=== PATIENT | female | born 1985 | race Caucasian/White ===

== ENCOUNTER 2020-02-17 11:41 | Outpatient (REF) | payer OTHER, SELFPAY ==
[2020-02-17 14:35] LABS: Free T4 (Free Thyroxine) 0.93 ng/dL (0.71-1.85)
== END 2020-02-17 11:42 | disposition home or self-care (01) ==
LOC: HO.10HDL 11:41
PROVIDERS: Visit Provider Advanced Practice Midwife
DX: R53.83 Other fatigue (principal)
CPT/HCPCS: 84439; 84443

== ENCOUNTER 2020-05-12 18:16 | Emergency (ER) | payer OTHER, SELFPAY ==
[2020-05-12 18:33] VITALS: BP 157/91; PULSE 119; RESP 18; TEMP 36.3; O2SAT 99; BMI 26.5
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
[2020-05-12] MEDS: Butalb/Acetamin/Caff 50/325/40 TABLET 2 TAB PO (19:51)
[2020-05-12 19:57] VITALS: BP 138/92; PULSE 80; RESP 18; O2SAT 100
== END 2020-05-12 20:43 | disposition home or self-care (01) ==
PROVIDERS: Emergency Provider Emergency Medicine Emergency Medical Services
DX: G43.901 Migraine, unspecified, not intractable, with status migrainosus (principal); R29.700 NIHSS score 0; Z79.899 Other long term (current) drug therapy
CPT/HCPCS: 99283; 99284

== ENCOUNTER 2020-08-23 19:48 | Emergency (ER) | payer OTHER, SELFPAY ==
[2020-08-23 19:51] VITALS: BP 147/103; PULSE 100; RESP 20; TEMP 36.6; O2SAT 100; BMI 30.4
--- NOTE | 2020-08-23 20:48 | ED.GENADULT ---
HPI - General Adult General Chief complaint: General Medical Stated complaint: High blood pressure Time Seen by Provider: 08/23/20 20:22 Source: patient Mode of arrival: ambulatory Limitations: no limitations History of Present Illness HPI narrative: Patient checked her blood pressure at home was 150/ 90 strong family history of hypertension and family in the ER blood pressure was 147/103 feeling increased anxiety patient does have borderline blood pressure before but never been started on medication patient denies any headache no chest pain or palpitation or shortness of breath no leg swelling Related Data Previous Rx's Medication Instructions Recorded sjlhctywuv-euasyqtrrvinc-yoii 1 cap PO Q8H PRN #20 cap 05/12/20 [Fioricet] amlodipine 2.5 mg PO DAILY #30 tab 08/23/20 lorazepam [Ativan] 0.5 mg PO BEDTIME PRN #20 tab 08/23/20 omeprazole 40 mg PO DAILY #30 cap 08/23/20 ibuprofen 600 mg PO Q6H PRN #20 tab 08/28/20 amlodipine 10 mg PO DAILY #20 tab 09/15/20 Allergies Allergy/AdvReac Type Severity Reaction Status Date / Time Penicillins [PENICILLINS] Allergy Mild HIVES Verified 09/14/20 22:23 diphenhydramine Allergy Unknown TACHYCARDIA Verified 09/14/20 22:23 [From BENADRYL] influenza virus vaccine, Allergy Unknown HIVES Verified 09/14/20 22:23 specific [FLU VACCINE] Review of Systems Review of Systems: Yes all other systems are reviewed and are negative PMFSH Past Medical History Medical History Anxiety Panic attack hypertension Preeclampsia Surgical History History of cholecystectomy Social History Social History Alcohol intake: former Substance Use Type: Marijuana Advance Directives: No Advance Directives Information Provided: No Patient : No Physical Exam Vital Signs: Vital Signs: Last Vital Signs Temp 98 F 08/23/20 19:51 Pulse 92 08/23/20 21:19 Resp 18 08/23/20 20:49 BP 137/104 H 08/23/20 21:19 Pulse Ox 100 08/23/20 20:49 Body Mass Index 30.4 Appearance: Alert. Oriented X3. No acute distress. Eyes: PERRLA, No Nystagmus ENT: Pharynx normal. Oral Mucosa moist Neck: Normal inspection. Neck supple. CVS: Normal heart rate and rhythm. Pulses normal. Respiratory: No respiratory distress. Equal air entry bilateral, no wheezing/rales/rhonchi Abdomen: Soft and nontender. Bowel sounds are present, no mass palpable, no CVA tenderness Skin: Skin warm and dry. Normal skin color. Normal skin turgor. Extremities: No lower extremity edema. No calf tenderness Neuro: Oriented X 3. No motor deficit. No sensory deficit. Medical Decision Making MDM Narrative Medical decision making narrative: Patient with persistent high blood pressure in the past and still will start her on amlodipine 2.5 mg daily Discharge Plan Discharge Clinical Impression: Hypertension Patient Disposition: Home, Self-Care Instructions: Hypertension (ED), Anxiety (ED) Additional Instructions: Take medication as advised for high blood pressure. Check blood pressure daily should be less than 130/80. Follow up with PCP if not better Prescriptions: New amlodipine 2.5 mg tablet 2.5 mg PO DAILY Qty: 30 RF: 0 omeprazole 40 mg capsule,delayed release(DR/EC) 40 mg PO DAILY Qty: 30 RF: 0 lorazepam [Ativan] 0.5 mg tablet 0.5 mg PO BEDTIME PRN (Reason: anxiety) Qty: 20 RF: 0 No Action ibuprofen 600 mg tablet 600 mg PO Q6H PRN (Reason: pain) Qty: 20 RF: 0 amlodipine 10 mg tablet 10 mg PO DAILY Qty: 20 RF: 0 yjjnbojeaz-twbmcnyhvtxvk-intw [Fioricet] 50-300-40 mg capsule 1 cap PO Q8H PRN (Reason: pain) Qty: 20 RF: 0 Interventions: ED Discharge Assessment Last Done: 08/23/20 22:01 Discharge Date/Time: 08/23/20 22:02
[2020-08-23 20:49] VITALS: BP 150/100; PULSE 103; RESP 18; O2SAT 100
--- NOTE | 2020-08-23 20:58 | PC.NURSE ---
appears well. states she feels anxious, had preeclampsia in 2 pregnancies. no neuro deficits. no headache.
[2020-08-23 21:19] VITALS: BP 137/104; PULSE 92
[2020-08-23] MEDS: amLODIPine Besylate 2.5 MG TABLET PO (21:19)
== END 2020-08-23 22:02 | disposition home or self-care (01) ==
PROVIDERS: Emergency Provider Internal Medicine; PCP Internal Medicine
DX: I10 Essential (primary) hypertension (principal); F41.9 Anxiety disorder, unspecified; F12.90 Cannabis use, unspecified, uncomplicated; Z79.899 Other long term (current) drug therapy
CPT/HCPCS: 99283; 99284

== ENCOUNTER 2020-08-28 15:05 | Emergency (ER) | payer OTHER, SELFPAY ==
--- NOTE | ~2020-08-28 | US_ITS ---
EXAMINATION: PELVIC ULTRASOUND CLINICAL INFORMATION: Left lower quadrant pain COMPARISON: Pelvic ultrasound 11/16/2019 TECHNIQUE: Both transabdominal and endovaginal scanning was performed. FINDINGS: The anteverted uterus present measuring 10.4 x 4.9 x 6.6 cm. The endometrium appears normal at 1.1 cm. The right ovary was not seen. This was also not seen at the time of the prior study. Left ovary measures 4.6 x 3.7 x 3.3 cm for a volume of 29 mL and contains multiple cysts the largest measuring 2.4 x 1.6 x 2.5 cm. No free fluid is present in the cul-de-sac US/US transvaginal IMPRESSION: 1. Benign-appearing cyst left ovary. No imaging follow-up is needed. 2. Normal-appearing uterus. 3. Right ovary not visualized
--- NOTE | ~2020-08-28 | US_ITS ---
EXAMINATION: PELVIC ULTRASOUND CLINICAL INFORMATION: Left lower quadrant pain COMPARISON: Pelvic ultrasound 11/16/2019 TECHNIQUE: Both transabdominal and endovaginal scanning was performed. FINDINGS: The anteverted uterus present measuring 10.4 x 4.9 x 6.6 cm. The endometrium appears normal at 1.1 cm. The right ovary was not seen. This was also not seen at the time of the prior study. Left ovary measures 4.6 x 3.7 x 3.3 cm for a volume of 29 mL and contains multiple cysts the largest measuring 2.4 x 1.6 x 2.5 cm. No free fluid is present in the cul-de-sac US/US pelvic complete IMPRESSION: 1. Benign-appearing cyst left ovary. No imaging follow-up is needed. 2. Normal-appearing uterus. 3. Right ovary not visualized
[2020-08-28 15:39] VITALS: BP 144/86; PULSE 90; RESP 16; TEMP 36.6; O2SAT 98; BMI 29.7
[2020-08-28 16:01] LABS: MANUAL DIFF FLAG NO
[2020-08-28 16:02] LABS: Basophils Absolute Auto 0.1 X10*3/uL (0.0-0.2); Basophils Percent Auto 0.6 % (0-2); Eosinophils Absolute Auto 0.3 X10*3/uL (0.0-0.4); Eosinophils Percent Auto 3.4 % (0-4); Hematocrit 38.5 % (37-47); Hemoglobin 12.4 g/dl (12.0-16.0); Imm Gran Abs Auto 0.02 X10*3/uL (0.00-0.03); Imm Gran Pct Auto 0.2 % (0.0-0.4); Lymphocytes Absolute Auto 1.7 X10*3/uL (1.2-4.9); Lymphocytes Percent Auto 18.9 % (20-40); Mean Corpuscular HGB Conc 32.2 g/dl (31.0-35.0); Mean Corpuscular Hemoglobin 25.1 pg (27.0-33.0); Mean Corpuscular Volume 77.8 fL (80-98); Mean Platelet Volume 11.8 fL (9.4-12.3); Monocytes Absolute Auto 0.5 X10*3/uL (0.1-1.2); Monocytes Percent Auto 5.4 % (2-11); Neutrophils Absolute Auto 6.4 X10*3/uL (2.0-8.3); Neutrophils Percent Auto 71.5 % (45-73); Platelet Count 290 X10*3/uL (160-400); Red Blood Count 4.95 X10*6/uL (4.20-5.50); White Blood Count 8.9 X10*3/uL (4.8-10.8)
[2020-08-28 16:22] LABS: Anion Gap 10 (12-20); Blood Urea Nitrogen 10 mg/dL (9-16); Calcium 9.3 mg/dL (8.4-10.2); Carbon Dioxide 27 mmol/L (22-29); Chloride 105 mmol/L (96-108); Creatinine Clr Calc Pharmacy 105.7; Estimated Glomerular Filt Rate > 60; Glucose Random 109 mg/dL (60-115); Sodium 138 mmol/L (135-145)
--- NOTE | 2020-08-28 18:03 | ED.ABDPAIN ---
HPI - Abdominal Pain General Chief Complaint: Abdominal Pain Stated Complaint: pelvic pain Time Seen by Provider: 08/28/20 18:03 Source: patient Mode of arrival: ambulatory Limitations: no limitations History of Present Illness HPI narrative: Patient's history of remote ovarian cyst comes here for 3 days of loaf left lower quadrant abdominal pain no nausea no vomiting no fever no chills no diarrhea no increase in pain while ambulating. Patient denies any urinary complaints no vaginal discharge MD elicited complaint: abdominal pain Related Data Previous Rx's Medication Instructions Recorded zjtfdnnkoi-ewuhhirjcgkkq-qkqq 1 cap PO Q8H PRN #20 cap 05/12/20 [Fioricet] amlodipine 2.5 mg PO DAILY #30 tab 08/23/20 lorazepam [Ativan] 0.5 mg PO BEDTIME PRN #20 tab 08/23/20 omeprazole 40 mg PO DAILY #30 cap 08/23/20 ibuprofen 600 mg PO Q6H PRN #20 tab 08/28/20 Allergies Allergy/AdvReac Type Severity Reaction Status Date / Time Penicillins [PENICILLINS] Allergy Mild HIVES Verified 08/23/20 19:56 diphenhydramine Allergy Unknown TACHYCARDIA Verified 08/23/20 19:56 [From BENADRYL] influenza virus vaccine, Allergy Unknown HIVES Verified 08/23/20 19:56 specific [FLU VACCINE] Review of Systems Review of Systems Constitutional : No Weight loss, No Fever, No Chills ENT/Mouth : No sore throat, No Rhinorrhea Eyes: No Eye Pain, No Swelling Cardiovascular : No Chest Pain, no palpitations Respiratory : No Cough, No Sputum, no shortness of breath Gastrointestinal : no Nausea, No Vomiting, No Diarrhea,+ abdominal Pain, no black stools Genitourinary : No Dysuria, No Urinary Frequency Musculoskeletal : No joint pain, No Myalgias, No Joint Swelling Skin : No Skin Lesions, No rash Neuro : No Weakness, No Numbness, No Dizziness, No Headache Psych : No Anxiety/Panic, No Depression Heme/Lymph: No Bruising, No Lymphadenopathy Endocrine : No Polyuria, No Polydipsia All other systems reviewed and are negative Physical Exam Vital Signs: Vital Signs: Last Vital Signs Temp 99.1 F 08/28/20 20:59 Pulse 102 H 08/28/20 20:59 Resp 19 08/28/20 20:59 BP 155/101 H 08/28/20 20:59 Pulse Ox 99 08/28/20 20:59 Body Mass Index 29.7 Appearance: Alert. Oriented X3. No acute distress. Eyes: PERRLA, No Nystagmus ENT: Pharynx normal. Oral Mucosa moist Neck: Normal inspection. Neck supple. CVS: Normal heart rate and rhythm. Pulses normal. Respiratory: No respiratory distress. Equal air entry bilateral, no wheezing/rales/rhonchi Abdomen: Soft , deep tenderness left lower quadrant. Bowel sounds are present, no mass palpable, no CVA tenderness Skin: Skin warm and dry. Normal skin color. Normal skin turgor. Extremities: No lower extremity edema. No calf tenderness Neuro: Oriented X 3. No motor deficit. No sensory deficit.No cerebellar signs , cranial nerves II-XII intact MDM - Abdominal Pain MDM Narrative Medical decision making narrative: Patient with small left ovarian cyst causing the pain will discharge her home on ibuprofen. Patient's blood pressure on the borderline on amlodipine 5 mg daily will take her medicine tonight Lab Data Attestation: I reviewed the patient's lab results. Result diagrams: 08/28/20 15:54 08/28/20 15:54 Labs: Lab Results 08/28/20 08/28/20 08/28/20 Range/Units 15:54 15:54 18:52 WBC 8.9 (4.8-10.8) X10*3/uL RBC 4.95 (4.20-5.50) X10*6/uL Hgb 12.4 (12.0-16.0) g/dl Hct 38.5 (37-47) % MCV 77.8 L (80-98) fL MCH 25.1 L (27.0-33.0) pg MCHC 32.2 (31.0-35.0) g/dl RDW 15.0 (11.0-16.0) % Plt Count 290 (160-400) X10*3/uL MPV 11.8 (9.4-12.3) fL Immature Gran % (Auto) 0.2 (0.0-0.4) % Neut % (Auto) 71.5 (45-73) % Lymph % (Auto) 18.9 L (20-40) % Calloway % (Auto) 5.4 (2-11) % Eos % (Auto) 3.4 (0-4) % Baso % (Auto) 0.6 (0-2) % Lymph # (Auto) 1.7 (1.2-4.9) X10*3/uL C[place]ay # (Auto) 0.5 (0.1-1.2) X10*3/uL Eos # (Auto) 0.3 (0.0-0.4) X10*3/uL Baso # (Auto) 0.1 (0.0-0.2) X10*3/uL Abs Immat Gran (auto) 0.02 (0.00-0.03) X10*3/uL Absolute Neuts (auto) 6.4 (2.0-8.3) X10*3/uL Absolute Nucleated RBC 0.000 (0.0-0.012) X10*3/uL Nucleated RBC % (auto) 0.0 (0.0-0.2) /100WBC Sodium 138 (135-145) mmol/L Potassium 4.0 (3.3-5.1) mmol/L Chloride 105 (96-108) mmol/L Carbon Dioxide 27 (22-29) mmol/L Anion Gap 10 L (12-20) BUN 10 (9-16) mg/dL Creatinine 0.74 (0.5-1.4) mg/dL Estim Creat Clear Calc 105.7 Estimated GFR > 60 Random Glucose 109 (60-115) mg/dL Calcium 9.3 (8.4-10.2) mg/dL Urine Color YELLOW Urine Appearance CLEAR Urine pH 7.0 (5.0-8.0) Ur Specific [place] 1.015 (1.005-1.025) Urine Protein NEG (NEG-TRACE) MG/DL Urine Glucose (UA) NEG (NEG) MG/DL Urine Ketones 15 (NEG) MG/DL Urine Blood NEG (NEG) Urine Nitrite NEG (NEG) Ur Leukocyte Esterase NEG (NEG) Discharge Plan Discharge Clinical Impression: Ovarian cyst Qualifiers: Laterality: left Qualified Code(s): N83.202 - Unspecified ovarian cyst, left side Patient Disposition: Home, Self-Care Instructions: Ovarian Cyst (ED) Additional Instructions: Ibuprofen for pain Follow-up with critical care registered nurse in 2 months Continue your blood pressure medication daily Prescriptions: New ibuprofen 600 mg tablet 600 mg PO Q6H PRN (Reason: pain) Qty: 20 RF: 0 No Action amlodipine 2.5 mg tablet 2.5 mg PO DAILY Qty: 30 RF: 0 omeprazole 40 mg capsule,delayed release(DR/EC) 40 mg PO DAILY Qty: 30 RF: 0 lorazepam [Ativan] 0.5 mg tablet 0.5 mg PO BEDTIME PRN (Reason: anxiety) Qty: 20 RF: 0 yjssapgvwl-rjtuxcsadvaez-pofm [Fioricet] 50-300-40 mg capsule 1 cap PO Q8H PRN (Reason: pain) Qty: 20 RF: 0 Discharge Date/Time: 08/28/20 21:11 [facility] Past Medical History Medical History Anxiety Panic attack hypertension Preeclampsia Surgical History History of cholecystectomy Social History Social History Alcohol intake: former Smoking Status: Never smoker Substance Use Type: Marijuana Advance Directives: No Advance Directives Information Provided: No Patient : No
[2020-08-28 18:05] VITALS: BP 165/106
[2020-08-28 18:43] VITALS: BP 147/102; PULSE 113; RESP 16; O2SAT 100
[2020-08-28 19:04] LABS: Glucose Urine UA NEG (NEG); Leukocyte Esterase Urine NEG (NEG); Nitrite Urine NEG (NEG); Specific Gravity - Urine 1.015 (1.005-1.025); Urine Blood NEG (NEG); Urine Ketones 15 MG/DL (NEG); Urine Protein NEG (NEG-TRACE)
[2020-08-28 19:10] LABS: Appearance Urine CLEAR; Color Urine YELLOW
[2020-08-28] MEDS: Butalb/Acetamin/Caff 50/325/40 TABLET 1 TAB PO (19:12)
--- NOTE | 2020-08-28 19:16 | PC.NURSE ---
Pt aaox4, resting on stretcher in NAD, RR even and unlabored, NSR-ST on cardiac rehabilitation program director. Pt reports feelings of anxiety, frontal SANTOS and LLQ abd pain. Pt aware and agreeable to plan for abd US, pt medicated per MAR with Fioricet. Pt offers no additional concerns/complaints/questions. Pt stretcher in lowest locked position, rail raised, call mart within reach. Pt educated on use of call mart, able to perform return demonstration.
[2020-08-28 20:59] VITALS: BP 155/101; PULSE 102; RESP 19; TEMP 37.3; O2SAT 99
== END 2020-08-28 21:11 | disposition home or self-care (01) ==
PROVIDERS: Emergency Provider Internal Medicine; PCP Internal Medicine
DX: R10.32 Left lower quadrant pain (principal); N83.202 Unspecified ovarian cyst, left side; F41.9 Anxiety disorder, unspecified
CPT/HCPCS: 36415; 76830; 76856; 80048; 81003; 85025; 99284; 99285

== ENCOUNTER 2020-09-14 22:12 | Emergency (ER) | payer OTHER, SELFPAY ==
[2020-09-14 22:19] VITALS: BP 154/104; PULSE 86; RESP 20; TEMP 36.3; O2SAT 98; BMI 29.7
--- NOTE | 2020-09-15 00:06 | ECG_ITS ---
Test Reason : HTM Blood Pressure : / mmHG Vent. Rate : 079 BPM Atrial Rate : 079 BPM P-R Int : 154 ms QRS Dur : 076 ms QT Int : 414 ms P-R-T Axes : 051 008 053 degrees QTc Int : 474 ms Normal sinus rhythm with sinus arrhythmia Normal ECG When compared with ECG of 21-MAY-2019 10:46, No significant change was found Referred By: Martha Romero Electronically Signed By:GABY AVALOS
--- NOTE | 2020-09-15 00:12 | ED_ITS ---
HPI - General Adult General Chief complaint: General Medical Stated complaint: High Blood Pressure Time Seen by Provider: 09/15/20 00:04 Source: patient Mode of arrival: ambulatory Limitations: no limitations History of Present Illness HPI narrative: Patient comes emergency room complaining of high blood pressure. Patient states her blood pressure was 160/102 this evening. Patient states she forgot to take her blood pressure yesterday. Today she took 5 mg as she usually does plus additional 2.5 mg of amlodipine. Patient has been on amlodipine for 1 month. Patient states that she is becoming more anxious about the trip to [place]. At this time, patient denies chest pain, no shortness of breath, no visual changes, states he has a mild headache her worst complaint at this time is the anxiety that she is feeling. Related Data Previous Rx's Medication Instructions Recorded [id number] 1 cap PO Q8H PRN #20 cap 05/12/20 [Fioricet] amlodipine 2.5 mg PO DAILY #30 tab 08/23/20 lorazepam [Ativan] 0.5 mg PO BEDTIME PRN #20 tab 08/23/20 omeprazole 40 mg PO DAILY #30 cap 08/23/20 ibuprofen 600 mg PO Q6H PRN #20 tab 08/28/20 amlodipine 10 mg PO DAILY #20 tab 09/15/20 Allergies Allergy/AdvReac Type Severity Reaction Status Date / Time Penicillins [PENICILLINS] Allergy Mild HIVES Verified 09/14/20 22:23 diphenhydramine Allergy Unknown TACHYCARDIA Verified 09/14/20 22:23 [From BENADRYL] influenza virus vaccine, Allergy Unknown HIVES Verified 09/14/20 22:23 specific [FLU VACCINE] Review of Systems Review of Systems: Constitutional : No Weight loss, No Fever, No Chills, No Night Sweats, No Fatigue, No Malaise ENT/Mouth : No Hearing loss, No Ear Pain, No Nasal Congestion, No Sinus Pain, No Hoarseness, No sore throat, No Rhinorrhea, No Swallowing Difficulty Eyes: No Eye Pain, No Swelling, No Redness, No Foreign Body, No Discharge, No Vision Changes Cardiovascular : No Chest Pain, No SOB, No Dyspnea on Exertion, No Orthopnea, No Edema, No Palpitations Respiratory : No Cough, No Sputum, No Wheezing, No Smoke Exposure, No Dyspnea Gastrointestinal : No Nausea, No Vomiting, No Diarrhea, No Constipation, No abdominal Pain, No Hematochezia, No Melena Genitourinary : no irregular bleeding, No Dysuria, No Urinary Frequency, No Hematuria, No Urinary Incontinence, No Urgency, No Flank Pain, No Urinary Flow Changes, No Hesitancy Musculoskeletal : No joint pain, No Myalgias, No Joint Swelling Skin : No Skin Lesions, No rash Neuro : No Weakness, No Numbness, No Paresthesias, No Loss of Consciousness, No Dizziness, complaining of mild Headache Psych : Complaining of anxiety, No Depression, No SI/HI/AH/VH, No Social Issues, Heme/Lymph: No Bruising, No Bleeding,No Lymphadenopathy Endocrine : No Polyuria, No Polydipsia, No Temperature Intolerance [facility] Past Medical History Medical History Anxiety Panic attack hypertension Preeclampsia Surgical History History of cholecystectomy Social History Social History Alcohol intake: former Substance Use Type: Marijuana Advance Directives: No Advance Directives Information Provided: No Patient : No Physical Exam Vital Signs: Vital Signs: Last Vital Signs Temp 98.0 F 09/15/20 00:24 Pulse 90 09/15/20 01:21 Resp 17 09/15/20 00:24 BP 153/97 H 09/15/20 01:21 Pulse Ox 100 09/15/20 00:24 Body Mass Index 29.7 Appearance: Alert. Oriented X3. No acute distress. Eyes: Pupils equal, round and reactive to light. ENT: Pharynx normal. Neck: Normal inspection. Neck supple. No lymph nodes noted. No crepitus CVS: Normal heart rate and rhythm. Pulses normal. Normal S1 and S2 Respiratory: No respiratory distress. Breath sounds normal. No Wheezing. No rales Abdomen: Soft and nontender. No rigidity. No distention. good BS x4 Skin: Skin warm and dry. Normal skin color. Normal skin turgor. Extremities: No lower extremity edema. No lower extremity edema. No Lacerations. No Rash Neuro: Oriented X 3. No motor deficit. No sensory deficit. Moving all extermities. No slurred speech. Course Course Course Narrative: Patient currently taking amlodipine 5 mg, I discussed with the patient to increase the dose to 10 mg. Patient's blood pressure 154 systolic. Patient will follow-up with her primary care physician. Medical Decision Making ECG Data Attestation: I personally reviewed and interpreted this ECG as follows: (Heart rate 79, sinus rhythm, no ST segment depression or elevation, no T-wave i nversion, QTC 474) Discharge Plan Discharge Clinical Impression: Anxiety Hypertension Qualifiers: Hypertension type: essential hypertension Qualified Code(s): I10 - Essential (primary) hypertension Patient Disposition: Home, Self-Care Instructions: Hypertension (ED) Additional Instructions: Please follow-up with your primary care physician tomorrow. If you have any worsening or new symptoms, please return to the emergency room or call 911 Prescriptions: New amlodipine 10 mg tablet 10 mg PO DAILY Qty: 20 RF: 0 No Action amlodipine 2.5 mg tablet 2.5 mg PO DAILY Qty: 30 RF: 0 omeprazole 40 mg capsule,delayed release(DR/EC) 40 mg PO DAILY Qty: 30 RF: 0 lorazepam [Ativan] 0.5 mg tablet 0.5 mg PO BEDTIME PRN (Reason: anxiety) Qty: 20 RF: 0 ibuprofen 600 mg tablet 600 mg PO Q6H PRN (Reason: pain) Qty: 20 RF: 0 [id number]-cjomsdbmxosla-tjyi [Fioricet] 50-300-40 mg capsule 1 cap PO Q8H PRN (Reason: pain) Qty: 20 RF: 0
[2020-09-15 00:24] VITALS: BP 157/104; PULSE 74; RESP 17; TEMP 36.7; O2SAT 100
[2020-09-15] MEDS: Acetaminophen 325 MG TABLET 650 MG PO (00:34)
[2020-09-15] MEDS: LORazepam 1 MG TABLET PO (00:35)
[2020-09-15 01:21] VITALS: BP 153/97; PULSE 90
[2020-09-15] MEDS: hydrALAZINE HCl 25 MG TABLET PO (01:21)
[2020-09-15 02:00] VITALS: BP 114/78; PULSE 78; RESP 15; O2SAT 98
== END 2020-09-15 03:52 | disposition home or self-care (01) ==
PROVIDERS: Emergency Provider Emergency Medicine; PCP Internal Medicine
DX: F41.9 Anxiety disorder, unspecified (principal); I10 Essential (primary) hypertension; F12.90 Cannabis use, unspecified, uncomplicated
CPT/HCPCS: 93005; 99283; 99284

== ENCOUNTER 2020-12-13 16:23 | Emergency (ER) | payer OTHER, SELFPAY ==
[2020-12-13 16:30] VITALS: BP 135/94; PULSE 96; RESP 16; TEMP 37.1; O2SAT 98; BMI 29.5
[2020-12-13 18:41] LABS: COVID-19 Test Negative (Negative); IDNOW Serial# 9DD0AD1C
--- NOTE | 2020-12-13 18:57 | ED.URI ---
HPI - URI/Sore Throat General Chief Complaint: Upper Respiratory Symptoms Stated Complaint: ear pain Time Seen by Provider: 12/13/20 18:57 Source: patient History of Present Illness HPI Narrative: 35-year-old female with a past medical history of anxiety, panic attacks, preeclampsia, hypertension, presenting to the ED complaining of right ear pain and sore throat since this morning. Also reports chills. Denies fever, drainage from the ear, hearing loss, cough, CP/SOB, recent travel, sick contacts MD elicited complaint: sore throat Related Data Previous Rx's Medication Instructions Recorded [id number] 1 cap PO Q8H PRN #20 cap 05/12/20 50 mg-300 mg-40 mg capsule (Fioricet) amlodipine 2.5 mg tablet 2.5 mg PO DAILY #30 tab 08/23/20 lorazepam 0.5 mg tablet (Ativan) 0.5 mg PO BEDTIME PRN #20 tab 08/23/20 omeprazole 40 mg capsule,delayed 40 mg PO DAILY #30 cap 08/23/20 release ibuprofen 600 mg tablet 600 mg PO Q6H PRN #20 tab 08/28/20 amlodipine 10 mg tablet 10 mg PO DAILY #20 tab 09/15/20 ofloxacin 0.3 % ear drops 10 drp OTIC (EARS) DAILY 7 Days ml 12/13/20 Allergies Allergy/AdvReac Type Severity Reaction Status Date / Time Penicillins [PENICILLINS] Allergy Mild HIVES Verified 09/14/20 22:23 diphenhydramine Allergy Unknown TACHYCARDIA Verified 09/14/20 22:23 [From BENADRYL] influenza virus vaccine, Allergy Unknown HIVES Verified 09/14/20 22:23 specific [FLU VACCINE] Review of Systems Review of Systems: Constitutional: No Fever, No Chills ENT/Mouth: + Ear Pain, No Nasal Congestion, No Sinus Pain, No Hoarseness, + sore throat, No Rhinorrhea, No Swallowing Difficulty Cardiovascular: No Chest Pain, No SOB Respiratory: No Cough, No Sputum Gastrointestinal: No Nausea, No Vomiting, No Diarrhea, No Abdominal pain Genitourinary: No Dysuria, No Hematuria, No Flank Pain Musculoskeletal: No joint pain, No Myalgias Skin: No Skin Lesions, No rash Neuro: No Weakness Yes all other systems are reviewed and are negative PMFSH Past Medical History Attestation statement: The following information was validated with the patient. Medical History Anxiety Panic attack hypertension Preeclampsia Surgical History History of cholecystectomy Social History Social History Alcohol intake: former Substance Use Type: Marijuana Advance Directives: No Advance Directives Information Provided: No Physical Exam Vital Signs: Vital Signs: Last Vital Signs Temp 98.7 F 12/13/20 16:30 Pulse 96 12/13/20 16:30 Resp 16 12/13/20 16:30 BP 135/94 H 12/13/20 16:30 Pulse Ox 98 12/13/20 16:30 Body Mass Index 29.5 Const: General: cooperative, healthy appearing and no acute distress Orientation/consciousness: patient oriented x3 Limitations: no limitations HENMT: Head: Yes normal to inspection Ears: hearing grossly normal bilaterally, TM's normal bilaterally, mastoids normal, external ear abnormal auricular tenderness on the right and pain with movement of external ear on the right and normal mastoids bilaterally General nose exam: Normal external nose present Face and sinus: Yes normal facial exam Mouth: Normal oral and palatal mucosa present Throat: Yes posterior oropharynx normal, Yes tonsils normal, Yes uvula midline, No peritonsillar mass and No uvular edema Eyes: General: appearance normal, both eyes and all related structures EOM: EOMs intact bilaterally Neck: Neck: Yes normal visual inspection, Yes no lymphadenopathy and Yes no meningeal signs Resp: Effort & Inspection: normal respiratory effort Auscultation: clear to auscultation bilaterally, no rhonchi and no wheezes Cardio: Rate: regular rate Heart sounds: S1 normal heart sound present and S2 normal heart sound present Skin: Rashes: no rashes Wounds: no wounds Neuro: General: patient oriented x3 and no meningeal signs Gait exam (Neuro): Normal gait present Extrem: General: Yes normal to inspection Course Course Course Narrative: -COVID-19 negative. Results discussed with patient MDM - URI/Sore Throat MDM Narrative Medical decision making narrative: 35-year-old female with a past medical history of anxiety, panic attacks, preeclampsia, hypertension, presenting to the ED complaining of right ear pain and sore throat since this morning. On exam VS as, an 80/well-appearing, physical exam as above, consistent with otitis externa. Mastoids WNL. Low concern for malignant otitis externa or mastoiditis. Rule out viral syndrome/COVID-19 Plan: COVID-19 testing Lab Data Labs: Lab Results 12/13/20 Range/Units 16:44 COVID-19 ([facility]) Negative (Negative) COVID-19 Clin Com See Note Discharge Plan Discharge Clinical Impression: Otitis externa Qualifiers: Laterality: right Patient Disposition: Home, Self-Care Instructions: Otitis Externa (ED) Additional Instructions: You have an external ear infection. You tested negative for COVID-19 Ofloxacin ear drops are antibiotic drops, use as prescribed Please follow-up with her doctor If symptoms persist or worsen or pain becomes unbearable, he developed drainage from her ear hearing loss or fever return to the ED Prescriptions: New ofloxacin 0.3 % drops 10 drp otic (ears) DAILY 7 Days RF: 0 No Action amlodipine 2.5 mg tablet 2.5 mg PO DAILY Qty: 30 RF: 0 omeprazole 40 mg capsule,delayed release(DR/EC) 40 mg PO DAILY Qty: 30 RF: 0 lorazepam [Ativan] 0.5 mg tablet 0.5 mg PO BEDTIME PRN (Reason: anxiety) Qty: 20 RF: 0 ibuprofen 600 mg tablet 600 mg PO Q6H PRN (Reason: pain) Qty: 20 RF: 0 amlodipine 10 mg tablet 10 mg PO DAILY Qty: 20 RF: 0 [id number]-zxuozkudxrnjf-vhkl [Fioricet] 50-300-40 mg capsule 1 cap PO Q8H PRN (Reason: pain) Qty: 20 RF: 0 Referrals: Prateek Montanez MD [Primary Care Provider] - 5 days Interventions: ED Discharge Assessment Last Done: 12/13/20 19:05 Discharge Date/Time: 12/13/20 19:06
== END 2020-12-13 19:06 | disposition home or self-care (01) ==
PROVIDERS: Emergency Provider Emergency Medicine; PCP Internal Medicine
DX: H60.91 Unspecified otitis externa, right ear (principal); Z20.822 Contact with and (suspected) exposure to COVID-19; J02.9 Acute pharyngitis, unspecified
CPT/HCPCS: 36415; 87635; 99283

== ENCOUNTER 2020-12-14 10:31 | Emergency (ER) | payer OTHER, SELFPAY ==
--- NOTE | ~2020-12-14 | CT_ITS ---
EXAMINATION: CT HEAD WITHOUT CONTRAST CLINICAL INFORMATION: Right-sided headache and eye pain COMPARISON: Previous head CT and brain MRI June 2017 TECHNIQUE: Contiguous axial imaging was performed from the skull base to vertex without intravenous administration of contrast. This CT examination was performed using dose optimization techniques as appropriate, variously including the following: *Automated exposure control *Adjustment of mA and/or kV according to patient size (this includes techniques or standardized protocols for targeted exams where dose is matched to indication/reason for exam; i.e. extremities or head) *Use of iterative reconstruction technique DLP: 638 mGy-cm FINDINGS: There is no evidence of acute intracranial hemorrhage or territorial infarction. No abnormal mass effect or midline shift is seen. Styles to white matter differentiation is well preserved. No extra-axial fluid collections are identified. The ventricles are normal in size. There is no abnormal attenuation within the brain parenchyma. The osseous structures and soft tissues are normal. The mastoid air cells and visualized portions of the paranasal sinuses are well aerated. CT/CT head/brain wo con IMPRESSION: Unremarkable exam.
[2020-12-14 10:37] VITALS: BP 145/100; PULSE 94; RESP 16; TEMP 36.3; O2SAT 98; BMI 29.5
[2020-12-14 12:18] LABS: UPreg QC Valid YES; Urine Pregnancy NEGATIVE (NEGATIVE)
--- NOTE | 2020-12-14 12:55 | ED_ITS ---
HPI - General Adult General Chief complaint: Upper Respiratory Symptoms Stated complaint: facial pain Time Seen by Provider: 12/14/20 10:54 Source: patient Mode of arrival: ambulatory Limitations: no limitations History of Present Illness HPI narrative: 35-year-old female sent here by her primary care provider for headache, patient was seen yesterday and diagnosed with otitis externa and put on ofloxacin. Patient called primary care today, they sent her here for head CT Patient states that yesterday she had a sore throat with pain in her right ear radiating to her right teeth and a headache on the right side of her face with pain behind her right eye. States the headache was gradual in onset and at its maximum was 6/10. The pains were sharp. She took Fioricet and it helped. Today her sore throat has resolved, her ear pain is better after 1 dose of ofloxacin ear drops. Denies blurry vision, neck pain, fevers, vision loss or changes. States she has pain in her right restorationist that is sharp and comes and goes. No head pain at this time. No nausea or vomiting. No photophobia. States her blood pressure is always high in the hospital, she does take her blood pressure at home and at work, she works at [employer], and her blood pressure is always within normal limits. Patient states repeatedly that she is anxious Patient's uncle had headaches and was diagnosed with a brain tumor and recently. Reports her symptoms started after she was dusting in her new home 2 days ago. complaint: headache Onset (ago): day(s) (2) Location: head Severity: moderate Quality: aching Pain Consistency: intermittent and now resolved Relieving factors: none Exacerbating factors: none Associated symptoms: denies other symptoms Treatments prior to arrival: none Related Data Previous Rx's Medication Instructions Recorded [id number] 1 cap PO Q8H PRN #20 cap 05/12/20 50 mg-300 mg-40 mg capsule (Fioricet) amlodipine 2.5 mg tablet 2.5 mg PO DAILY #30 tab 08/23/20 lorazepam 0.5 mg tablet (Ativan) 0.5 mg PO BEDTIME PRN #20 tab 08/23/20 omeprazole 40 mg capsule,delayed 40 mg PO DAILY #30 cap 08/23/20 release ibuprofen 600 mg tablet 600 mg PO Q6H PRN #20 tab 08/28/20 amlodipine 10 mg tablet 10 mg PO DAILY #20 tab 09/15/20 ofloxacin 0.3 % ear drops 10 drp OTIC (EARS) DAILY 7 Days ml 12/13/20 Allergies Allergy/AdvReac Type Severity Reaction Status Date / Time Penicillins [PENICILLINS] Allergy Mild HIVES Verified 09/14/20 22:23 diphenhydramine Allergy Unknown TACHYCARDIA Verified 09/14/20 22:23 [From BENADRYL] influenza virus vaccine, Allergy Unknown HIVES Verified 09/14/20 22:23 specific [FLU VACCINE] Review of Systems Constitutional: Constitutional: Denies body ache(s), Denies chills, Denies fatigue, Denies fever(s), Reports headache(s), Denies lethargy, Denies malaise and Denies weakness Eyes: Eyes: Denies blurry vision, Denies change in vision, Denies diplopia and Denies loss of vision ENT: Denies dizziness, Reports otalgia, Reports headache(s), Denies neck pain, Denies disequilibrium, Denies post nasal drip, Denies tinnitus and Reports sore throat Cardiovascular: Cardiovascular: Denies chest pain, Denies lightheadedness and Denies dyspnea Respiratory: Respiratory: Denies chest congestion, Denies cough and Denies dyspnea Gastrointestinal: Gastrointestinal: Denies abdominal pain, Denies constipation, Denies diarrhea and Denies vomiting Genitourinary: Genitourinary: Reports no additional female genitourinary complaints Musculoskeletal: Musculoskeletal: Reports no additional musculoskeletal complaints, Denies neck pain, Denies numbness and Denies tingling Integumentary/Breasts: Skin/Breast: Denies erythema and Denies rash Neurologic: Denies Abnormal speech present, Denies dizziness, Reports headache(s), Denies focal weakness, Denies loss of vision, Denies numbness, Denies Sensory deficit (Neuro), Denies tingling, Denies paresthesias, Denies disequilibrium and Denies weakness Psychiatric: Psychiatric: Reports anxiety Endocrine: Endocrine: Denies fatigue PMFSH Past Medical History Medical History Anxiety Panic attack hypertension Preeclampsia Surgical History History of cholecystectomy Social History Social History Alcohol intake: former Substance Use Type: Marijuana Advance Directives: No Advance Directives Information Provided: No Patient : No Physical Exam Vital Signs: Vital Signs: Last Vital Signs Temp 97.3 F 12/14/20 10:37 Pulse 94 12/14/20 10:37 Resp 16 12/14/20 10:37 BP 145/100 H 12/14/20 10:37 Pulse Ox 98 12/14/20 10:37 Body Mass Index 29.5 Const: General: cooperative, no acute distress, well developed, alert and awake Nutritional Appearance: well nourished Orientation/consciousness: patient oriented x3 Limitations: no limitations HENMT: Head: Yes normal to inspection, Yes normocephalic and Yes atraumatic Ears: hearing grossly normal bilaterally, external ears normal, TM's normal bilaterally and EAC's normal General nose exam: Normal external nose present Face and sinus: Yes normal facial exam and Yes sinuses nontender Mouth: Normal oral and palatal mucosa present Throat: Yes posterior oropharynx normal Eyes: Conjunctivae: conjunctivae normal Pupils: Equal, round and reactive pupils present EOM: EOMs intact bilaterally and No Nystagmus present Neck: Neck: Yes full ROM, Yes no lymphadenopathy and Yes supple Resp: Effort & Inspection: normal respiratory effort and able to speak in complete sentences Auscultation: clear to auscultation bilaterally, no crackles, no rales, no rhonchi and no wheezes Cardio: Rate: regular rate Rhythm: regular rhythm Heart sounds: S1 normal heart sound present and S2 normal heart sound present GI: Inspection: Yes normal to inspection Palpation (GI): Soft to palpation, nontender, no guarding and not rigid Percussion: Yes normal to percussion Auscultation: normal bowel sounds Skin: General skin exam: no rashes or lesions noted Neuro: General: patient oriented x3, tone normal and moves all extremities Cranial nerves: Yes CN's II-XII intact bilaterally, Yes Facial sensation intact/muscles of mastication intact, Yes Equal, round and reactive pupils present, Yes Normal accommodation reflex present, Yes Bilaterally intact EOM present, Yes Nystagmus not present, Yes Normal facial strength present, Yes Mi dline tongue present, Yes Ability to bilaterally rotate head present, Yes Ability to bilaterally elevate shoulders present and No Nystagmus present Cognition (Neuro): normal cognition Speech: No Abnormal speech present Gait exam (Neuro): Normal gait present Motor exam (neuro): 5/5 motor strength present throughout and Pronator motor function not present Sensory Exam: No Sensory deficit (Neuro) Deep tendon reflexes (DTR's): Right brachioradialis reflex intensity grade: 1+, Left brachioradialis reflex intensity grade: 1+, Right patellar reflex intensity grade: 2+ and Left patellar reflex intensity grade: 2+ Coordination: qcnyfq-bg-gksl test normal, brhn-xz-cxtd test normal and tandem gait normal Romberg Test: Negative Pupils: Normal pupillary reactivity/response: bilateral Extrem: General: Yes normal to inspection and Yes full ROM Psych: Appearance: grossly normal Affect: normal affect Attitude: cooperative Thought process: Normal thought process present Course Course Course Narrative: 35-year-old female being treated for right otitis externa presents because PCP sent her here for head CT for right-sided headache that has now resolved. Patient has no visual changes, no neck pain, no gait disturbance, no stroke-like symptoms, she has a completely benign neurological exam. Patient is very anxious, her uncle of a brain tumor. Did share decision making, patient got head CT. Head CT showed no intracranial abnormality. Counseled patient to continue with her ofloxacin drops and follow-up with the primary care provider. Consultation to return to the emergency room she had sudden severe headache, trouble walking, neck stiffness, or fevers. Patient verbalized agreement understanding of plan. Medical Decision Making Lab Data Labs: Lab Results 12/14/20 Range/Units 11:56 Urine Test NEGATIVE (NEGATIVE) Discharge Plan Discharge Clinical Impression: Headache Qualifiers: Headache type: tension-type Headache chronicity pattern: acute headache Intractability: not intractable Qualified Code(s): G44.209 - Tension-type headache, unspecified, not intractable Patient Disposition: Home, Self-Care Instructions: Acute Headache (ED) Additional Instructions: Please call your primary care provider today for follow-up appointment. I would like you to be seen in 1 week to 10 days. Please continue to use your ear drops. Please let your PCP know that these are external ear drops, not something you are taking by mouth. Please return to the emergency room if you have a sudden severe headache, if you have visual changes such as blurry vision or loss of vision, if you have neck pain or neck stiffness, if you have trouble walking, or any other new or concerning symptoms. Prescriptions: No Action amlodipine 2.5 mg tablet 2.5 mg PO DAILY Qty: 30 RF: 0 omeprazole 40 mg capsule,delayed release(DR/EC) 40 mg PO DAILY Qty: 30 RF: 0 lorazepam [Ativan] 0.5 mg tablet 0.5 mg PO BEDTIME PRN (Reason: anxiety) Qty: 20 RF: 0 ibuprofen 600 mg tablet 600 mg PO Q6H PRN (Reason: pain) Qty: 20 RF: 0 amlodipine 10 mg tablet 10 mg PO DAILY Qty: 20 RF: 0 omokctvpra-yzxhokikesjhi-skkh [Fioricet] 50-300-40 mg capsule 1 cap PO Q8H PRN (Reason: pain) Qty: 20 RF: 0 ofloxacin 0.3 % drops 10 drp otic (ears) DAILY 7 Days RF: 0 Interventions: ED Discharge Assessment Last Done: 12/14/20 13:06 Discharge Date/Time: 12/14/20 13:06
== END 2020-12-14 13:06 | disposition home or self-care (01) ==
PROVIDERS: Physician Assistant; Emergency Provider Emergency Medicine; PCP Internal Medicine
DX: G44.209 Tension-type headache, unspecified, not intractable (principal); I10 Essential (primary) hypertension
CPT/HCPCS: 70450; 81025; 99283; 99284

== ENCOUNTER 2021-05-09 03:04 | Emergency (ER) | payer OTHER, SELFPAY ==
[2021-05-09 03:37] VITALS: BP 170/95; PULSE 95; RESP 16; TEMP 35.8; O2SAT 98; BMI 31.1
[2021-05-09 04:14] LABS: COVID-19 Test Negative (Negative); IDNOW Serial# 9DD0AD1C
[2021-05-09 04:50] VITALS: BP 134/91; PULSE 87; RESP 16; TEMP 36.9; O2SAT 98
[2021-05-09 04:54] LABS: Appearance Urine CLEAR; Color Urine STRAW; Glucose Urine UA NEG (NEG); Leukocyte Esterase Urine NEG (NEG); Nitrite Urine NEG (NEG); UACC Culture Trigger NO; Urine Blood 3+ (NEG); Urine Ketones NEG (NEG); Urine Protein NEG (NEG-TRACE)
[2021-05-09 04:56] LABS: UPreg QC Valid YES; Urine Pregnancy NEGATIVE (NEGATIVE)
[2021-05-09] MEDS: Acetaminophen 325 MG TABLET 975 MG PO (05:05)
[2021-05-09] MEDS: Ketorolac Tromethamine 30 MG/ML VIAL 15 MG IM (05:06)
[2021-05-09 05:08] LABS: Mucus Urine TRACE /LPF; Squamous Epithelial Cell Urine 1+ /LPF; WBC Urine 0 /HPF (0-4)
--- NOTE | 2021-05-09 05:19 | ED.HA ---
HPI - Headache General Chief Complaint: Headache Stated Complaint: migraine, high bp normally Time Seen by Provider: 05/09/21 04:58 Source: patient Mode of arrival: ambulatory History of Present Illness HPI Narrative: 35-year-old female with history high blood pressure and migraines states that she was awake and with her typical migraine symptoms with associated photosensitivity some mild nausea but otherwise denies any speech changes or extremity numbness/tingling/weakness. Patient states that she had not had any recent migraine flares as previously the migraines have been associated with menstrual cycles. Patient then endorses that she just started her menstruation cycle. She was primarily concerned because she had noted that her blood pressure was elevated but denied any associated chest pain/palpitations/shortness of breath. In addition, patient denies any dizziness, or blurred vision. Related Data Previous Rx's Medication Instructions Recorded ickayhndod-lxkpnbojytvlm-wqclkmhn 1 cap PO Q8H PRN #20 cap 05/12/20 50 mg-300 mg-40 mg capsule (Fioricet) amlodipine 2.5 mg tablet 2.5 mg PO DAILY #30 tab 08/23/20 lorazepam 0.5 mg tablet (Ativan) 0.5 mg PO BEDTIME PRN #20 tab 08/23/20 omeprazole 40 mg capsule,delayed 40 mg PO DAILY #30 cap 08/23/20 release ibuprofen 600 mg tablet 600 mg PO Q6H PRN #20 tab 08/28/20 amlodipine 10 mg tablet 10 mg PO DAILY #20 tab 09/15/20 ofloxacin 0.3 % ear drops 10 drp OTIC (EARS) DAILY 7 Days ml 12/13/20 Allergies Allergy/AdvReac Type Severity Reaction Status Date / Time Penicillins [PENICILLINS] Allergy Mild HIVES Verified 05/09/21 03:46 diphenhydramine Allergy Unknown TACHYCARDIA Verified 05/09/21 03:46 [From BENADRYL] influenza virus vaccine, Allergy Unknown HIVES Verified 05/09/21 03:46 specific [FLU VACCINE] Review of Systems Review of Systems: Pertinent positives and negatives as stated in HPI 10 point review of systems is otherwise negative. PMFSH Past Medical History Source: nursing notes reviewed Medical History Anxiety Panic attack hypertension Preeclampsia Surgical History History of cholecystectomy Social History Social History Alcohol intake: former Substance Use Type: Marijuana Advance Directives: No Physical Exam Vital Signs: Vital Signs: Last Vital Signs Temp 98.5 F 05/09/21 04:50 Pulse 87 05/09/21 04:50 Resp 16 05/09/21 04:50 BP 134/91 H 05/09/21 04:50 Pulse Ox 98 05/09/21 04:50 BMI result Body Mass Index 31.1 VITAL SIGNS: Reviewed. GENERAL: Well developed, well nourished, in no acute distress. HEAD: Normocephalic/atraumatic EYES: PERRLA, EOMI OROPHARYNX: no oral lesions noted, posterior pharynx clear LUNGS: Normal breath sounds. No adventitious sounds or accessory muscle use. SpO2<98> CARDIOVASCULAR: Regular rate and rhythm without noted murmurs ABDOMEN: Soft, non-tender, non-distended with bowel sounds. NEUROLOGIC: Alert and oriented x 4. Strength and sensation to light touch were grossly intact x 4. Course Course Course Narrative: This is a 35-year-old female with history and clinical presentation consistent with uncomplicated recurrent migraine that has presented with the same onset and pattern. On review of all investigations there are no acute findings and on re-evaluation after patient received combination analgesics she reports that she has had complete resolution of her headache. She endorses that she does have your set available home for remaining treatment of her headache. Her blood pressure is noted to have significantly improved and patient is otherwise discharged home in stable condition. MDM - Headache Lab Data Labs: Lab Results 05/09/21 05/09/21 05/09/21 Range/Units 03:48 04:48 04:48 Urine Color STRAW Urine Appearance CLEAR Urine pH 6.0 (5.0-8.0) Ur Specific [place] 1.010 (1.005-1.025) Urine Protein NEG (NEG-TRACE) MG/DL Urine Glucose (UA) NEG (NEG) MG/DL Urine Ketones NEG (NEG) MG/DL Urine Blood 3+ H (NEG) Urine Nitrite NEG (NEG) Ur Leukocyte Esterase NEG (NEG) Urine RBC 5-9 H (0) /HPF Urine WBC 0 (0-4) /HPF Ur Squamous Epith Cells 1+ /LPF Urine Bacteria NONE /LPF Urine Mucus TRACE /LPF Urine Test NEGATIVE (NEGATIVE) COVID-19 ([facility]) Negative (Negative) COVID-19 Clin Com See Note Discharge Plan Discharge Clinical Impression: Migraine, Hypertension Patient Disposition: Home, Self-Care Instructions: DASH Eating Plan (ED), Migraine Headache (ED) Additional Instructions: 1. Resume all home medications as prescribed. 2. Consider using your Fioricet as prescribed and needed for migraine control. 3. Recommend following up with your primary care provider in the next 1-2 days for re-evaluation and further outpatient management. Return to the ER for worsening symptoms. Prescriptions: No Action amlodipine 2.5 mg tablet 2.5 mg PO DAILY Qty: 30 RF: 0 omeprazole 40 mg capsule,delayed release(DR/EC) 40 mg PO DAILY Qty: 30 RF: 0 lorazepam [Ativan] 0.5 mg tablet 0.5 mg PO BEDTIME PRN (Reason: anxiety) Qty: 20 RF: 0 ibuprofen 600 mg tablet 600 mg PO Q6H PRN (Reason: pain) Qty: 20 RF: 0 amlodipine 10 mg tablet 10 mg PO DAILY Qty: 20 RF: 0 hpgligloel-qeebyzsohlybr-acic [Fioricet] 50-300-40 mg capsule 1 cap PO Q8H PRN (Reason: pain) Qty: 20 RF: 0 ofloxacin 0.3 % drops 10 drp otic (ears) DAILY 7 Days RF: 0 Referrals: Prateek Montanez MD [Primary Care Provider] - 2 days Stand Alone Forms: Work/School Release
== END 2021-05-09 07:51 | disposition home or self-care (01) ==
PROVIDERS: Emergency Provider Student in an Organized Health Care Education/Training Program; PCP Internal Medicine
DX: G43.909 Migraine, unspecified, not intractable, without status migrainosus (principal); I10 Essential (primary) hypertension; Z20.822 Contact with and (suspected) exposure to COVID-19
CPT/HCPCS: 81001; 81025; 87635; 96372; 99283; 99284; J1885

== ENCOUNTER 2021-07-29 12:36 | Emergency (ER) | payer OTHER, SELFPAY ==
[2021-07-29 13:17] VITALS: BP 150/92; PULSE 82; RESP 20; TEMP 35.6; O2SAT 99; BMI 31.8
--- NOTE | 2021-07-29 13:32 | ED.GENADULT ---
HPI - General Adult General Chief complaint: General Medical Stated complaint: SHOOTING PAIN L SIDE NECK DOWN TO FINGERS Time Seen by Provider: 07/29/21 13:32 Source: patient Mode of arrival: ambulatory Limitations: no limitations History of Present Illness HPI narrative: Patient is a 35 year old female presenting to the emergency department today with left sided neck pain that radiates down the arm. Patient states that she has a pain that starts in the left side of her neck and radiates down her left arm into her left finger tips. Patient denies any dizziness, lightheadedness, abdominal pain, nausea, vomiting, fever, chills, blurry vision, double vision, loss of vision, chest pain, difficulty breathing, shortness of breath, back pain, night sweats, pain with urination, increased urinary frequency, increased urinary urgency, blood in her urine or stool, syncope or a near syncopal episode, recent trauma or falls, bowel incontinence, bladder incontinence, bowel retention, bladder retention, or any other complaints at this time. Onset (ago): hour(s) Location: neck and upper extremity Radiation: extremity Severity: mild Severity scale (1-10): 3 Quality: dull Pain Consistency: constant Relieving factors: none Exacerbating factors: none Associated symptoms: denies other symptoms Treatments prior to arrival: none Related Data Previous Rx's Medication Instructions Recorded erjpoaqmib-sczggvggddrqd-fhnwceci 1 cap PO Q8H PRN #20 cap 05/12/20 50 mg-300 mg-40 mg capsule (Fioricet) amlodipine 2.5 mg tablet 2.5 mg PO DAILY #30 tab 08/23/20 lorazepam 0.5 mg tablet (Ativan) 0.5 mg PO BEDTIME PRN #20 tab 08/23/20 omeprazole 40 mg capsule,delayed 40 mg PO DAILY #30 cap 08/23/20 release ibuprofen 600 mg tablet 600 mg PO Q6H PRN #20 tab 08/28/20 amlodipine 10 mg tablet 10 mg PO DAILY #20 tab 09/15/20 ofloxacin 0.3 % ear drops 10 drp OTIC (EARS) DAILY 7 Days ml 12/13/20 cyclobenzaprine 10 mg tablet 10 mg PO TID PRN 7 Days #21 tab 07/29/21 Allergies Allergy/AdvReac Type Severity Reaction Status Date / Time Penicillins [PENICILLINS] Allergy Mild HIVES Verified 05/09/21 03:46 diphenhydramine Allergy Unknown TACHYCARDIA Verified 05/09/21 03:46 [From BENADRYL] influenza virus vaccine, Allergy Unknown HIVES Verified 05/09/21 03:46 specific [FLU VACCINE] Review of Systems Constitutional: Constitutional: Reports no additional constitutional complaints, Denies chills, Denies fever(s) and Denies night sweats Eyes: Eyes: Reports no additional eye complaints, Denies blurry vision, Denies change in vision, Denies diplopia, Denies eye discharge, Denies loss of vision and Denies eye pain ENT: Denies dizziness and Reports neck pain Cardiovascular: Cardiovascular: Reports no additional cardiovascular complaints, Denies chest pain, Denies lightheadedness, Denies Loss of Consciousness and Denies dyspnea Respiratory: Respiratory: Reports no additional respiratory complaints and Denies dyspnea Gastrointestinal: Gastrointestinal: Reports no additional gastrointestinal complaints, Denies abdominal pain, Denies melena, Denies hematochezia, Denies change in bowel habits and Denies change in stool character Genitourinary: Genitourinary: Denies hematuria, Denies urinary frequency, Denies dysuria, Denies urinary incontinence, Denies urinary hesitancy and Denies urinary urgency Musculoskeletal: Musculoskeletal: Reports no additional musculoskeletal complaints, Reports neck pain, Denies numbness and Denies tingling Neurologic: Denies dizziness, Denies loss of vision, Denies numbness and Denies tingling Psychiatric: Psychiatric: Reports no additional psychiatric complaints Endocrine: Endocrine: Reports no additional endocrine complaints Hematologic/Lymphatic: Hematologic/Lymphatic: Reports no additional hematologic/lymphatic complaints Allergic/Immunologic: Allergic/Immunologic: Reports no additional allergic/immunologic complaints COUNT INCLUDES THE [facility] Past Medical History Attestation statement: The following information was validated with the patient. Source: old records reviewed Medical History Anxiety Panic attack hypertension Preeclampsia Surgical History History of cholecystectomy Social History Social History Alcohol intake: former Substance Use Type: Marijuana Advance Directives: No Advance Directives Information Provided: Yes Patient : No Physical Exam ED Vital Signs: Vital Signs - 24 hr 07/29/21 13:17 Temperature 96.0 F L Pulse Rate 82 Respiratory Rate 20 Blood Pressure 150/92 H Pulse Oximetry 99 BMI result Body Mass Index 31.8 Const General: cooperative, no acute distress, alert and awake Nutritional Appearance: well nourished Orientation/consciousness: patient oriented x3 Limitations: no limitations HENMT Head: Yes normal to inspection and Yes atraumatic Ears: hearing grossly normal bilaterally and external ears normal General nose exam: Normal external nose present, no nasal discharge noted and no epistaxis Face and sinus: Yes normal facial exam, No abrasion and No laceration Mouth: Normal oral and palatal mucosa present, no drooling and no muffled voice Eyes General: appearance normal, both eyes and all related structures Periorbital: periorbital findings normal Eyelids: Yes eyelids normal Conjunctivae: conjunctivae normal Pupils: Equal, round and reactive pupils present EOM: EOMs intact bilaterally Neck Neck: Yes normal visual inspection, Yes full ROM and Yes no lymphadenopathy Chest Chest palpation & inspection: normal inspection of the chest Resp Effort & Inspection: normal respiratory effort and able to speak in complete sentences Auscultation: clear to auscultation bilaterally Cardio Rate: regular rate Rhythm: regular rhythm GI Inspection: Yes normal to inspection General: Yes no CVA tenderness Back/Spine/Pelvis Back: no CVA tenderness Cervical Spine: normal cervical lordosis and cervical ROM normal Thoracic/Lumbar Spine: thoracic and lumbar spine normal to inspection and thoraco-lumbar ROM normal Pelvis: no pain with anterior-posterior compression Neuro General: patient oriented x3 and moves all extremities Cranial nerves: Yes Equal, round and reactive pupils present Cognition (Neuro): normal cognition Motor exam (neuro): 5/5 motor strength present throughout Sensory Exam: Normal double simultaneous stimulation for sensation Coordination: rrdlde-ez-mxig test normal Extrem General: Yes normal to inspection, Yes full ROM and Yes capillary refill normal Psych Appearance: grossly normal Mental Status: mental status grossly normal Affect: normal affect Attitude: cooperative Thought process: Normal thought process present Thought content: Normal thought content present Insight: Good insight present (Psych) Medical Decision Making MDM Narrative Medical decision making narrative: Patient is a 35 year old female presenting to the emergency department today with left sided neck pain. Patient's physical exam was unremarkable. I explained my physical exam findings to the patient. I answered all questions asked by the patient. Patient received IM Toradol and PO Flexeril which she stated helped her symptoms significantly. I stressed the importance of the patient taking her medication as prescribed. I stressed the importance of the patient following up with her primary care provider. I stressed the importance of the patient returning to the emergency department immediately if her symptoms were to worsen or if she were to develop any dizziness, shortness of breath, difficulty breathing, chest pain, blurry vision, loss of vision, nausea, vomiting, abdominal pain, fever, chills, back pain, or any other complaints. Patient verbalized agreement and understanding with this treatment plan and discharge. Differential Diagnosis Differential Diagnosis: Cervical radiculopathy Medical Records Medical records reviewed: Yes I reviewed the patient's medical records. Discharge Plan Discharge Clinical Impression: Cervical radiculopathy Patient Disposition: Home, Self-Care Instructions: Cervical Radiculopathy (ED) Additional Instructions: Follow up with your primary care provider. Return to the emergency department immediately if your symptoms worsen or if you develop any dizziness, shortness of breath, difficulty breathing, chest pain, blurry vision, loss of vision, nausea, vomiting, abdominal pain, fever, chills, back pain, or any other complaints. Prescriptions: New cyclobenzaprine 10 mg tablet 10 mg PO TID PRN (Reason: muscle spasm) 7 Days Qty: 21 0RF No Action amlodipine 2.5 mg tablet 2.5 mg PO DAILY Qty: 30 0RF omeprazole 40 mg capsule,delayed release(DR/EC) 40 mg PO DAILY Qty: 30 0RF lorazepam [Ativan] 0.5 mg tablet 0.5 mg PO BEDTIME PRN (Reason: anxiety) Qty: 20 0RF ibuprofen 600 mg tablet 600 mg PO Q6H PRN (Reason: pain) Qty: 20 0RF amlodipine 10 mg tablet 10 mg PO DAILY Qty: 20 0RF ekycvudnke-umaughfcezwmd-jrbw [Fioricet] 50-300-40 mg capsule 1 cap PO Q8H PRN (Reason: pain) Qty: 20 0RF ofloxacin 0.3 % drops 10 drp otic (ears) DAILY 7 Days 0RF [place] [facility] [place] [facility] [place] Group] (Follow up with orthopedics if your pain persists. ) Prateek Montanez III, MD [Primary Care Provider] - (Follow up with your PCP. ) Interventions: ED Discharge Assessment Last Done: 07/29/21 14:27 Discharge Date/Time: 07/29/21 14:28 Print Language: Mongolian
[2021-07-29] MEDS: Ketorolac Tromethamine 30 MG/ML VIAL IM (14:19)
[2021-07-29] MEDS: Cyclobenzaprine HCl 10 MG TABLET PO (14:19)
--- NOTE | 2021-07-29 14:27 | PC.NURSE ---
PT C/O LEFT SHOULDER/DELTOID PAIN FOR A FEW DAYS. NO KNOWN INJURY, NO CP, NO SOB.
== END 2021-07-29 14:28 | disposition home or self-care (01) ==
PROVIDERS: Emergency Provider Emergency Medicine; PCP Internal Medicine
DX: M54.12 Radiculopathy, cervical region (principal); M54.2 Cervicalgia; I10 Essential (primary) hypertension; Z79.899 Other long term (current) drug therapy
CPT/HCPCS: 96372; 99283; 99284; J1885

== ENCOUNTER 2021-08-21 05:36 | Emergency (ER) | payer OTHER, SELFPAY ==
[2021-08-21 06:02] VITALS: BP 143/101; PULSE 95; RESP 18; TEMP 36.9; O2SAT 99; BMI 30.9
[2021-08-21 06:20] LABS: COVID-19 Test Negative (Negative)
[2021-08-21 06:21] LABS: IDNOW Serial# 08D9AD1C; Influenza A Negative (Negative); Influenza B2 Negative (Negative)
--- NOTE | 2021-08-21 07:05 | ED.GENADULT ---
HPI - General Adult General Chief complaint: General Medical Stated complaint: flu like symptoms Time Seen by Provider: 08/21/21 06:37 Source: patient Mode of arrival: ambulatory Limitations: no limitations History of Present Illness MD complaint: flu like symptoms Onset (ago): day(s) (4) Location: head, mouth and chest Radiation: non-radiation Severity: moderate Quality: burning and aching Pain Consistency: intermittent Relieving factors: none Exacerbating factors: other (coughing, swallowing) Associated symptoms: cough, headaches and malaise Treatments prior to arrival: other (home remedies such as honey) Related Data Previous Rx's Medication Instructions Recorded ejnsfrbkxy-bdlntjzezziug-xwoyjvcj 1 cap PO Q8H PRN #20 cap 05/12/20 50 mg-300 mg-40 mg capsule (Fioricet) amlodipine 2.5 mg tablet 2.5 mg PO DAILY #30 tab 08/23/20 lorazepam 0.5 mg tablet (Ativan) 0.5 mg PO BEDTIME PRN #20 tab 08/23/20 omeprazole 40 mg capsule,delayed 40 mg PO DAILY #30 cap 08/23/20 release ibuprofen 600 mg tablet 600 mg PO Q6H PRN #20 tab 08/28/20 amlodipine 10 mg tablet 10 mg PO DAILY #20 tab 09/15/20 ofloxacin 0.3 % ear drops 10 drp OTIC (EARS) DAILY 7 Days ml 12/13/20 cyclobenzaprine 10 mg tablet 10 mg PO TID PRN 7 Days #21 tab 07/29/21 azithromycin 250 mg tablet See Rx Instructions .ROUTE 08/21/21 .COMPLEX #6 tab prednisone 20 mg tablet 40 mg PO DAILY 5 Days #10 tab 08/21/21 Allergies Allergy/AdvReac Type Severity Reaction Status Date / Time Penicillins [PENICILLINS] Allergy Mild HIVES Verified 05/09/21 03:46 diphenhydramine Allergy Unknown TACHYCARDIA Verified 05/09/21 03:46 [From BENADRYL] influenza virus vaccine, Allergy Unknown HIVES Verified 05/09/21 03:46 specific [FLU VACCINE] Review of Systems Review of Systems: Constitutional : no Fever, positive Chills, positive fatigue, positive Malaise ENT/Mouth : positive sore throat, positive runny nose Eyes: No Discharge Cardiovascular : No Chest Pain, No SOB Respiratory : pos Cough, No Sputum Gastrointestinal : No Nausea, No Vomiting, No Diarrhea Genitourinary : No Dysuria, No Urinary Frequency Musculoskeletal : positive Myalgia Skin : No rash Neuro : pos Headache PMFSH Past Medical History Attestation statement: The following information was validated with the patient. Medical History Anxiety Panic attack hypertension Preeclampsia Surgical History History of cholecystectomy Social History Social History (Updated 08/21/21 @ 07:06 by Ema German DO) Alcohol intake: former Patient Tobacco Use Status: Never used Tobacco Substance Use Type: Marijuana Advance Directives: No Advance Directives Information Provided: Yes Physical Exam ED Vital Signs: Vital Signs - 24 hr 08/21/21 06:02 Temperature 98.4 F Pulse Rate 95 Respiratory Rate 18 Blood Pressure 143/101 H Pulse Oximetry 99 BMI result Body Mass Index 30.9 Appearance: Alert. Oriented X3. No acute distress. Eyes: Pupils equal, round and reactive to light. ENT: Pharynx mild erythema no swelling or patches Neck: Normal inspection. Neck supple. CVS: Normal heart rate and rhythm. Pulses normal. Respiratory: No respiratory distress. Breath sounds with dry bronchospastic cough, coarse Abdomen: Soft and nontender. Skin: Skin warm and dry. Normal skin color. Normal skin turgor. Extremities: No lower extremity edema. Neuro: Oriented X 3. No motor deficit. No sensory deficit. Medical Decision Making MDM Narrative Medical decision making narrative: 35 yo female with hx of HTN here with sore throat, bronchospastic cough, URI symptoms after working in yard - symptoms consistent with bronchitis at this time COVID and flu negative no hypoxia will give INH , steroids and zpak for bronchitis - retest in 2 days for COVID. Patient aware RT to due INH teacher. Stable for outpatient treatment. Lab Data Labs: Lab Results 08/21/21 08/21/21 Range/Units 05:57 05:57 COVID-19 ([facility]) Negative (Negative) COVID-19 Clin Com See Note Influenza Type A ([facility]) Negative (Negative) Influenza Type B ([facility]) Negative (Negative) Influenza A & B Note See Note Discharge Plan Discharge Clinical Impression: Bronchitis Patient Disposition: Home, Self-Care Instructions: Acute Bronchitis (ED) Additional Instructions: return to ED for any worsening symptoms or concerns INHALER 2 puffs every 4 hours as needed for cough and shortness of breath rinse mouth after retest for COVID in 2 days negative today for covid and flu Prescriptions: New azithromycin 250 mg tablet See Rx Instructions .ROUTE .COMPLEX Qty: 6 0RF Rx Instructions: For 250 mg dose pack: take 500 mg today (day 1), then 250 mg for 4 days (days 2-5) prednisone 20 mg tablet 40 mg PO DAILY 5 Days Qty: 10 0RF No Action amlodipine 2.5 mg tablet 2.5 mg PO DAILY Qty: 30 0RF omeprazole 40 mg capsule,delayed release(DR/EC) 40 mg PO DAILY Qty: 30 0RF lorazepam [Ativan] 0.5 mg tablet 0.5 mg PO BEDTIME PRN (Reason: anxiety) Qty: 20 0RF ibuprofen 600 mg tablet 600 mg PO Q6H PRN (Reason: pain) Qty: 20 0RF amlodipine 10 mg tablet 10 mg PO DAILY Qty: 20 0RF mzprohpqbs-lkxyvvceomxfj-nibh [Fioricet] 50-300-40 mg capsule 1 cap PO Q8H PRN (Reason: pain) Qty: 20 0RF ofloxacin 0.3 % drops 10 drp otic (ears) DAILY 7 Days 0RF cyclobenzaprine 10 mg tablet 10 mg PO TID PRN (Reason: muscle spasm) 7 Days Qty: 21 0RF Stand Alone Forms: Work/School Release
[2021-08-21] MEDS: Albuterol Sulfate 90 MCG 8 GM INHALER 2 PUFF INHALE (07:26)
[2021-08-21 07:38] VITALS: PULSE 95; RESP 18; O2SAT 99
== END 2021-08-21 07:39 | disposition home or self-care (01) ==
PROVIDERS: Emergency Provider Emergency Medicine
DX: J40 Bronchitis, not specified as acute or chronic (principal); I10 Essential (primary) hypertension; Z20.822 Contact with and (suspected) exposure to COVID-19
CPT/HCPCS: 87502; 87635; 94640; 99283; 99284

== ENCOUNTER 2022-01-07 06:08 | Emergency (ER) | payer OTHER, SELFPAY ==
[2022-01-07 06:43] VITALS: BP 139/93; PULSE 106; RESP 14; TEMP 37.7; O2SAT 97; BMI 31.6
[2022-01-07] MEDS: Ibuprofen 600 MG TABLET PO (07:22)
[2022-01-07 07:36] LABS: COVID-19 Test Positive (Negative); IDNOW Serial# 16C4AD1C
--- NOTE | 2022-01-07 08:05 | ED_ITS ---
HPI - General Adult General Chief complaint: General Medical Stated complaint: body aches, headache Time Seen by Provider: 01/07/22 08:05 Source: patient Mode of arrival: ambulatory Limitations: no limitations History of Present Illness HPI narrative: Patient is a 36 year old female presenting to the emergency department today with body aches and chills. Patient states that it started yesterday with a neck ache and now she is having more diffuse body pain and chills. Patient denies any dizziness, lightheadedness, abdominal pain, nausea, vomiting, fever, blurry vision, double vision, loss of vision, chest pain, difficulty breathing, shortness of breath, back pain, night sweats, pain with urination, increased urinary frequency, increased urinary urgency, blood in her urine or stool, syncope or a near syncopal episode, recent trauma or falls, bowel incontinence, bladder incontinence, bowel retention, bladder retention, or any other complaints at this time. Onset (ago): day(s) (1) Severity: mild Severity scale (1-10): 2 Quality: aching Pain Consistency: constant Relieving factors: none Exacerbating factors: none Associated symptoms: denies other symptoms Treatments prior to arrival: none Related Data Previous Rx's Medication Instructions Recorded [id number]-[id number] 1 cap PO Q8H PRN pain #20 caps 05/12/20 50 mg-300 mg-40 mg capsule (Fioricet) amlodipine 2.5 mg tablet 2.5 mg PO DAILY #30 tabs 08/23/20 lorazepam 0.5 mg tablet (Ativan) 0.5 mg PO BEDTIME PRN anxiety #20 08/23/20 tabs omeprazole 40 mg capsule,delayed 40 mg PO DAILY #30 caps 08/23/20 release ibuprofen 600 mg tablet 600 mg PO Q6H PRN pain #20 tabs 08/28/20 amlodipine 10 mg tablet 10 mg PO DAILY #20 tabs 09/15/20 ofloxacin 0.3 % ear drops 10 drp otic (ears) DAILY 7 days 12/13/20 cyclobenzaprine 10 mg tablet 10 mg PO TID PRN muscle spasm 7 07/29/21 days #21 tabs azithromycin 250 mg tablet See Rx Instructions PO .COMPLEX #6 08/21/21 tabs prednisone 20 mg tablet 40 mg PO DAILY 5 days #10 tabs 08/21/21 Allergies Allergy/AdvReac Type Severity Reaction Status Date / Time Penicillins [PENICILLINS] Allergy Mild HIVES Verified 05/09/21 03:46 diphenhydramine Allergy Unknown TACHYCARDIA Verified 05/09/21 03:46 [From BENADRYL] influenza virus vaccine, Allergy Unknown HIVES Verified 05/09/21 03:46 specific [FLU VACCINE] Review of Systems Constitutional: Constitutional: Reports no additional constitutional complaints, Reports body ache(s), Reports chills, Denies fever(s) and Denies night sweats Eyes: Eyes: Reports no additional eye complaints, Denies blurry vision, Denies change in vision, Denies diplopia, Denies eye discharge, Denies loss of vision and Denies eye pain ENT: Denies dizziness Cardiovascular: Cardiovascular: Reports no additional cardiovascular complaints, Denies chest pain, Denies lightheadedness, Denies Loss of Consciousness and Denies dyspnea Respiratory: Respiratory: Reports no additional respiratory complaints and Denies dyspnea Gastrointestinal: Gastrointestinal: Reports no additional gastrointestinal complaints, Denies abdominal pain, Denies melena, Denies hematochezia, Denies change in bowel habits and Denies change in stool character Genitourinary: Genitourinary: Denies hematuria, Denies urinary frequency, Denies dysuria, Denies urinary incontinence, Denies urinary hesitancy and Denies urinary urgency Musculoskeletal: Musculoskeletal: Reports no additional musculoskeletal complaints, Denies numbness and Denies tingling Neurologic: Denies dizziness, Denies loss of vision, Denies numbness and Denies tingling Psychiatric: Psychiatric: Reports no additional psychiatric complaints Endocrine: Endocrine: Reports no additional endocrine complaints Hematologic/Lymphatic: Hematologic/Lymphatic: Reports no additional hematologic/lymphatic complaints Allergic/Immunologic: Allergic/Immunologic: Reports no additional allergic/immunologic complaints [facility] Past Medical History Attestation statement: The following information was validated with the patient. Source: old records reviewed Medical History Anxiety Panic attack hypertension Preeclampsia Surgical History History of cholecystectomy Social History Social History Alcohol intake: former Patient Tobacco Use Status: Never used Tobacco Substance Use Type: Marijuana Advance Directives: No Advance Directives Information Provided: No Physical Exam ED Vital Signs: Vital Signs - 24 hr 01/07/22 06:43 Temperature 100 F Pulse Rate 106 H Respiratory Rate 14 Blood Pressure 139/93 H Pulse Oximetry 97 Oxygen Delivery Method Room Air BMI result Body Mass Index 31.6 Const General: cooperative, no acute distress, alert and awake Nutritional Appearance: well nourished Orientation/consciousness: patient oriented x3 Limitations: no limitations HENMT Head: Yes normal to inspection and Yes atraumatic Ears: hearing grossly normal bilaterally and external ears normal General nose exam: Normal external nose present, no nasal discharge noted and no epistaxis Face and sinus: Yes normal facial exam, No abrasion and No laceration Mouth: Normal oral and palatal mucosa present, no drooling and no muffled voice Eyes General: appearance normal, both eyes and all related structures Periorbital: periorbital findings normal Eyelids: Yes eyelids normal Conjunctivae: conjunctivae normal Pupils: Equal, round and reactive pupils present EOM: EOMs intact bilaterally Neck Neck: Yes normal visual inspection, Yes full ROM and Yes no lymphadenopathy Chest Chest palpation & inspection: normal inspection of the chest Resp Effort & Inspection: normal respiratory effort and able to speak in complete sentences Auscultation: clear to auscultation bilaterally Cardio Rate: regular rate Rhythm: regular rhythm GI Inspection: Yes normal to inspection Neuro General: patient oriented x3 and moves all extremities Cranial nerves: Yes Equal, round and reactive pupils present Cognition (Neuro): normal cognition Motor exam (neuro): 5/5 motor strength present throughout Sensory Exam: Normal double simultaneous stimulation for sensation Coordination: hrpejc-ha-rjdn test normal Extrem General: Yes normal to inspection, Yes full ROM and Yes capillary refill normal Psych Appearance: grossly normal Mental Status: mental status grossly normal Affect: normal affect Attitude: cooperative Thought process: Normal thought process present Thought content: Normal thought content present Insight: Good insight present (Psych) Medical Decision Making MDM Narrative Medical decision making narrative: Patient is a 36 year old female presenting to the emergency department today with bodyaches and chills. Patient's physical exam was unremarkable. Patient's rapid COVID-19 test was positive. I explained my physical exam findings as well as all test results to the patient. I answered all questions asked by the patient. Patient received ibuprofen which she stated helped her symptoms significantly. I stressed the importance of the patient taking her medication as prescribed. I stressed the importance of the patient following up with her primary care provider. I stressed the importance of the patient returning to the emergency department immediately if her symptoms were to worsen or if she were to develop any dizziness, shortness of breath, difficulty breathing, chest pain, blurry vision, loss of vision, nausea, vomiting, abdominal pain, fever, chills, back pain, or any other complaints. Patient verbalized agreement and understanding with this treatment plan and discharge. Differential Diagnosis Differential Diagnosis: COVID-19 Medical Records Medical records reviewed: Yes I reviewed the patient's medical records. Lab Data Lab results reviewed: Yes I reviewed the patient's lab results. Labs: Lab Results 01/07/22 Range/Units 07:20 COVID-19 ([facility]) Positive A (Negative) COVID-19 Clin Com See Note Discharge Plan Discharge Clinical Impression: COVID-19 Patient Disposition: Home, Self-Care Instructions: COVID-19 (Coronavirus Disease 2019) (ED) Additional Instructions: You received 600mg of ibuprofen while in the department. Follow up with your primary care provider. Return to the emergency department immediately if your symptoms worsen or if you develop any dizziness, shortness of breath, difficulty breathing, chest pain, blurry vision, loss of vision, nausea, vomiting, abdominal pain, fever, chills, back pain, or any other complaints. Prescriptions: No Action amlodipine 2.5 mg tablet 2.5 mg PO DAILY Qty: 30 0RF omeprazole 40 mg capsule,delayed release(DR/EC) 40 mg PO DAILY Qty: 30 0RF lorazepam [Ativan] 0.5 mg tablet 0.5 mg PO BEDTIME PRN (Reason: anxiety) Qty: 20 0RF ibuprofen 600 mg tablet 600 mg PO Q6H PRN (Reason: pain) Qty: 20 0RF amlodipine 10 mg tablet 10 mg PO DAILY Qty: 20 0RF dwcjfpojbq-egipuwhjzjltl-aheq [Fioricet] 50-300-40 mg capsule 1 cap PO Q8H PRN (Reason: pain) Qty: 20 0RF ofloxacin 0.3 % drops 10 drp otic (ears) DAILY 7 Days 0RF cyclobenzaprine 10 mg tablet 10 mg PO TID PRN (Reason: muscle spasm) 7 Days Qty: 21 0RF azithromycin 250 mg tablet See Rx Instructions .ROUTE .COMPLEX Qty: 6 0RF Rx Instructions: For 250 mg dose pack: take 500 mg today (day 1), then 250 mg for 4 days (days 2-5) prednisone 20 mg tablet 40 mg PO DAILY 5 Days Qty: 10 0RF Referrals: Prateek Montanez III, MD [Primary Care Provider] - Stand Alone Forms: Work/School Release Interventions: ED Discharge Assessment Last Done: 01/07/22 08:43 Discharge Date/Time: 01/07/22 08:44 Print Language: Slovenian
--- NOTE | 2022-01-07 08:38 | PC.NURSE ---
PT EVALUATED BY HUGO MAN PT AWAKE, ALERT AND ORIENTED X 3. SKIN WARM AND DRY. RESP EVEN, EASY AND UNLABORED. SPEAKING IN FULL CLEAR SENTENCES. REPORTS SOME IMPROVEMENT IN PAIN PLAN IS FOR DC HOME. PT AGREEABLE EDUCATION PROVIDED REGARDING QUARANTINE AND CARE AT HOME. RECEPTIVE TO EDUCATION
== END 2022-01-07 08:44 | disposition home or self-care (01) ==
PROVIDERS: Emergency Provider Emergency Medicine; PCP Internal Medicine
DX: U07.1 COVID-19 (principal); M79.10 Myalgia, unspecified site; R51.9 Headache, unspecified; Z20.822 Contact with and (suspected) exposure to COVID-19; Z79.899 Other long term (current) drug therapy
CPT/HCPCS: 87635; 99283

== ENCOUNTER 2022-02-15 03:32 | Emergency (ER) | payer OTHER, SELFPAY ==
[2022-02-15 03:37] VITALS: BP 163/107; PULSE 120; RESP 18; TEMP 36.8; O2SAT 100; BMI 30.8
--- NOTE | 2022-02-15 03:52 | ED.HA ---
HPI - Headache General Chief Complaint: Headache Stated Complaint: Headache/?High Blood Pressure Time Seen by Provider: 02/15/22 03:52 Source: patient Mode of arrival: ambulatory Limitations: no limitations History of Present Illness HPI Narrative: Patient history of hypertension, anxiety, migraine headaches felt headache with anxiety prior to arrival blood pressure elevated at 151/103 which usually gets high when she goes to hospital patient seems very anxious no nausea no vomiting sensitive to light Related Data Previous Rx's Medication Instructions Recorded mojiaxmzvo-acwxdtrwpxodx-vplhmtfk 1 cap PO Q8H PRN pain #20 caps 05/12/20 50 mg-300 mg-40 mg capsule (Fioricet) amlodipine 2.5 mg tablet 2.5 mg PO DAILY #30 tabs 08/23/20 lorazepam 0.5 mg tablet (Ativan) 0.5 mg PO BEDTIME PRN anxiety #20 08/23/20 tabs omeprazole 40 mg capsule,delayed 40 mg PO DAILY #30 caps 08/23/20 release ibuprofen 600 mg tablet 600 mg PO Q6H PRN pain #20 tabs 08/28/20 amlodipine 10 mg tablet 10 mg PO DAILY #20 tabs 09/15/20 ofloxacin 0.3 % ear drops 10 drp otic (ears) DAILY 7 days 12/13/20 cyclobenzaprine 10 mg tablet 10 mg PO TID PRN muscle spasm 7 07/29/21 days #21 tabs azithromycin 250 mg tablet See Rx Instructions PO .COMPLEX #6 08/21/21 tabs prednisone 20 mg tablet 40 mg PO DAILY 5 days #10 tabs 08/21/21 lorazepam 0.5 mg tablet (Ativan) 0.5 mg PO BEDTIME PRN anxiety #7 02/15/22 tabs Allergies Allergy/AdvReac Type Severity Reaction Status Date / Time Penicillins [PENICILLINS] Allergy Mild HIVES Verified 02/15/22 03:40 diphenhydramine Allergy Unknown TACHYCARDIA Verified 02/15/22 03:40 [From BENADRYL] influenza virus vaccine, Allergy Unknown HIVES Verified 02/15/22 03:40 specific [FLU VACCINE] Review of Systems Review of Systems: Yes all other systems are reviewed and are negative PMFSH Past Medical History Medical History Anxiety Panic attack hypertension Preeclampsia Surgical History History of cholecystectomy Social History Social History Alcohol intake: former Patient Tobacco Use Status: Never used Tobacco Smoked in Last 30 Days: No Substance Use Type: Marijuana Advance Directives: No Advance Directives Information Provided: Yes Patient : No Physical Exam Vital Signs: Vital Signs: Last Vital Signs Temp 98.2 F 02/15/22 03:37 Pulse 120 H 02/15/22 03:37 Resp 18 02/15/22 03:37 BP 163/107 H 02/15/22 03:37 Pulse Ox 100 02/15/22 03:37 O2 Del Method 02/15/22 03:37 BMI result Body Mass Index 30.8 Appearance: Alert. Oriented X3. No acute distress. Anxious Eyes: PERRLA, No Nystagmus ENT: Pharynx normal. Oral Mucosa moist Neck: Normal inspection. Neck supple. CVS: Normal heart rate and rhythm. Pulses normal. Respiratory: No respiratory distress. Equal air entry bilateral, no wheezing/rales/rhonchi Abdomen: Soft and nontender. Bowel sounds are present, no mass palpable, no CVA tenderness Skin: Skin warm and dry. Normal skin color. Normal skin turgor. Extremities: No lower extremity edema. No calf tenderness Neuro: Oriented X 3. No motor deficit. No sensory deficit.No cerebellar signs , cranial nerves II-XII intact MDM - Headache MDM Narrative Medical decision making narrative: Patient with migraine, hypertension with anxiety blood pressure improved after Ativan and Fioricet 136/90 now feeling much better will discharge patient home Medical Records Attestation: I reviewed the patient's medical records. Discharge Plan Discharge Clinical Impression: Migraine, Anxiety Patient Disposition: Home, Self-Care Instructions: Migraine Headache (ED), Anxiety (ED) Additional Instructions: Taking medications for blood pressure and migraine headaches as prescribed by her PCP Anxiety medicine as needed Prescriptions: New lorazepam [Ativan] 0.5 mg tablet 0.5 mg PO BEDTIME PRN (Reason: anxiety) Qty: 7 0RF No Action amlodipine 2.5 mg tablet 2.5 mg PO DAILY Qty: 30 0RF omeprazole 40 mg capsule,delayed release(DR/EC) 40 mg PO DAILY Qty: 30 0RF lorazepam [Ativan] 0.5 mg tablet 0.5 mg PO BEDTIME PRN (Reason: anxiety) Qty: 20 0RF ibuprofen 600 mg tablet 600 mg PO Q6H PRN (Reason: pain) Qty: 20 0RF amlodipine 10 mg tablet 10 mg PO DAILY Qty: 20 0RF ljojvgdnpz-qfysymopmqusn-mktg [Fioricet] 50-300-40 mg capsule 1 cap PO Q8H PRN (Reason: pain) Qty: 20 0RF ofloxacin 0.3 % drops 10 drp otic (ears) DAILY 7 Days 0RF cyclobenzaprine 10 mg tablet 10 mg PO TID PRN (Reason: muscle spasm) 7 Days Qty: 21 0RF azithromycin 250 mg tablet See Rx Instructions .ROUTE .COMPLEX Qty: 6 0RF Rx Instructions: For 250 mg dose pack: take 500 mg today (day 1), then 250 mg for 4 days (days 2-5) prednisone 20 mg tablet 40 mg PO DAILY 5 Days Qty: 10 0RF
--- OUTSIDE RECORDS SUMMARY | 2022-02-15 04:22 | XMS_ITS | Continuity of Care Document ---
:1985 Author Organization [facility] Address [address] [place] [id number]- Care Team Providers Name Role Phone Tarik GODDARD MD, Prateek Ley Primary Care Physician Encounter [facility] [place] Date(s): 11/19/20 - 12/19/[address] [id number] Attending Physician: Jody Quijano Admitting Physician: Jody Quijano Referring Physician: Admtr, ArYancy Allergies, Adverse Reactions, Alerts Substance Reaction Severity Status Seafood Active Medications Vicodin 5 mg-300 mg oral tablet 1 tablet, By Mouth, Every 6 hours, 0 Refills, Maintenance, 10/22/14 21:22:28 Start Date: 10/22/14 Status: Ordered
--- OUTSIDE RECORDS SUMMARY | 2022-02-15 04:22 | XMS_ITS | Continuity of Care Document ---
:1985 Author Organization [facility] Address [address] [place] [id number]- Care Team Providers Name Role Phone Tarik GODDARD MD, Prateek Ley Primary Care Physician Encounter [facility] [place] Date(s): 05/23/21 - 06/22/[address] [id number] Attending Physician: Jody Quijano Admitting Physician: Jody Quijano Referring Physician: Admtr, Jody Allergies, Adverse Reactions, Alerts Substance Reaction Severity Status Seafood Active Medications Vicodin 5 mg-300 mg oral tablet 1 tablet, By Mouth, Every 6 hours, 0 Refills, Maintenance, 10/22/14 21:22:28 Start Date: 10/22/14 Status: Ordered
--- OUTSIDE RECORDS SUMMARY | 2022-02-15 04:22 | XMS_ITS | Continuity of Care Document ---
:1985 Author Organization [facility] Address [address] [place] [id number]- Care Team Providers Name Role Phone Tarik GODDARD MD, Prateek Ley Primary Care Physician Encounter [facility] [place] Date(s): 11/13/20 - 12/19/[address] [id number] Attending Physician: Latonia Hansen CNM Admitting Physician: Latonia Hansen CNM Referring Physician: Latonia Hansen CNM Allergies, Adverse Reactions, Alerts Substance Reaction Severity Status Seafood Active Medications Vicodin 5 mg-300 mg oral tablet 1 tablet, By Mouth, Every 6 hours, 0 Refills, Maintenance, 10/22/14 21:22:28 Start Date: 10/22/14 Status: Ordered
--- OUTSIDE RECORDS SUMMARY | 2022-02-15 04:22 | XMS_ITS ---
:1985 Author Care Team Providers Name Role Phone Urgent Care Primary Care Provider Unavailable Allergies Code Code System Name Reaction Severity Status Onset [id number] RxNorm Benadryl ? ? Active ? Penicillins ? ? Active ? Notes: ALLERGY TO FLU VACCINE Medications Name Status Start Date Stop Date ? ? amlodipine Active ? Not available sertraline Active ? Not available Problems None recorded. Procedures None recorded. Results Lab Results None recorded. Past Encounters 08/28/2021 Acute Left Otitis Media PATRICIA Tellez: [address] [place] [address], Ph. Social History Tobacco Smoking Status Never Smoker Vaccine List None recorded. Plan of Care Reminders Provider Appointments None recorded. ? ? Lab None recorded. ? ? Referral None recorded. ? ? Procedures None recorded. ? ? Surgeries None recorded. ? ? Imaging None recorded. ? ? Vitals Blood Pressure 130/97 mm[Hg]
[2022-02-15] MEDS: LORazepam 1 MG TABLET PO (04:35)
[2022-02-15] MEDS: Butalb/Acetamin/Caff 50/325/40 TABLET 1 TAB PO (04:35)
[2022-02-15 05:43] VITALS: BP 136/96
== END 2022-02-15 05:55 | disposition home or self-care (01) ==
PROVIDERS: Emergency Provider Internal Medicine; PCP Internal Medicine
DX: G43.909 Migraine, unspecified, not intractable, without status migrainosus (principal); F41.1 Generalized anxiety disorder; Z79.899 Other long term (current) drug therapy
CPT/HCPCS: 99283; 99284

== ENCOUNTER 2022-09-23 08:20 | Emergency (ER) | payer OTHER, SELFPAY ==
[2022-09-23 08:22] VITALS: BP 156/105; PULSE 89; RESP 16; TEMP 36.6; O2SAT 98; BMI 29.0
[2022-09-23 08:48] LABS: IDNOW Serial# 08D9AD1C; Strep A Nucleic Acid Negative (Negative)
--- NOTE | 2022-09-23 09:13 | ED_ITS ---
HPI - General Adult General Chief complaint: General Medical Stated complaint: Strep throat Time Seen by Provider: 09/23/22 09:08 Source: patient, RN notes reviewed and old records reviewed Mode of arrival: ambulatory History of Present Illness HPI narrative: 36-year-old female with past medical history of anxiety, hypertension, presenting to the ED complaining sore/scratchy throat x 2 weeks. States initially had double ear infection, was prescribed Cefdinir however stopped taking prematurely with 9 pills left, admits stops taking 5 days ago. Admits your discomfort improved/resolved. Denies fever, chills, hearing loss, drainage from ears, difficulty/inability to swallow, cough Onset (ago): week(s) Related Data Previous Rx's Medication Instructions Recorded nwxukabitd-eahsxurjynqbf-ufcpegyl 1 cap PO Q8H PRN pain #20 caps 05/12/20 50 mg-300 mg-40 mg capsule (Fioricet) amlodipine 2.5 mg tablet 2.5 mg PO DAILY #30 tabs 08/23/20 lorazepam 0.5 mg tablet (Ativan) 0.5 mg PO BEDTIME PRN anxiety #20 08/23/20 tabs omeprazole 40 mg capsule,delayed 40 mg PO DAILY #30 caps 08/23/20 release ibuprofen 600 mg tablet 600 mg PO Q6H PRN pain #20 tabs 08/28/20 amlodipine 10 mg tablet 10 mg PO DAILY #20 tabs 09/15/20 ofloxacin 0.3 % ear drops 10 drp otic (ears) DAILY 7 days 12/13/20 cyclobenzaprine 10 mg tablet 10 mg PO TID PRN muscle spasm 7 07/29/21 days #21 tabs azithromycin 250 mg tablet See Rx Instructions PO .COMPLEX #6 08/21/21 tabs prednisone 20 mg tablet 40 mg PO DAILY 5 days #10 tabs 08/21/21 lorazepam 0.5 mg tablet (Ativan) 0.5 mg PO BEDTIME PRN anxiety #7 02/15/22 tabs lidocaine HCl 2 % mucosal solution 5 ml mucous membrane BID PRN pain 09/23/22 (Lidocaine Viscous) #50 mL Allergies Allergy/AdvReac Type Severity Reaction Status Date / Time Penicillins [PENICILLINS] Allergy Mild HIVES Verified 02/15/22 03:40 diphenhydramine Allergy Unknown TACHYCARDIA Verified 02/15/22 03:40 [From BENADRYL] influenza virus vaccine, Allergy Unknown HIVES Verified 02/15/22 03:40 specific [FLU VACCINE] Review of Systems Review of Systems: Constitutional: No Fever, No Chills ENT/Mouth: No Ear Pain, No Nasal Congestion, No Sinus Pain, No Hoarseness, + s ore throat, No Rhinorrhea, No Swallowing Difficulty Cardiovascular: No Chest Pain, No SOB Respiratory: No Cough, No Sputum, No Wheezing Gastrointestinal: No Nausea, No Vomiting, No Diarrhea, No Constipation, No Abdominal pain Genitourinary: No Dysuria, No Urinary Frequency, No Hematuria Musculoskeletal: No joint pain, No Myalgias, No Joint Swelling Skin: No Skin Lesions, No rash Neuro: No Weakness, Yes all other systems are reviewed and are negative Constitutional: Constitutional: Reports as per [facility] Past Medical History Attestation statement: The following information was validated with the patient. Source: old records reviewed Medical History Anxiety Panic attack hypertension Preeclampsia Surgical History History of cholecystectomy Social History Social History Alcohol intake: former Patient Tobacco Use Status: Never used Tobacco Substance Use Type: Marijuana Advance Directives: No Advance Directives Information Provided: No Physical Exam ED Vital Signs: Vital Signs - 24 hr 09/23/22 08:22 Temperature 97.9 F Pulse Rate 89 Respiratory Rate 16 Blood Pressure 156/105 H Pulse Oximetry 98 Oxygen Delivery Method Room Air BMI result Body Mass Index 29.0 Const General: cooperative, healthy appearing and no acute distress Orientation/consciousness: patient oriented x3 Limitations: no limitations HENMT Head: Yes normal to inspection and Yes atraumatic Ears: hearing grossly normal bilaterally, external ears normal, TM's normal bilaterally and mastoids normal General nose exam: Normal external nose present Face and sinus: Yes normal facial exam Throat: Yes posterior oropharynx normal, Yes tonsils normal, Yes uvula midline, No peritonsillar mass, No uvula laterally displaced and No uvular edema Eyes General: appearance normal, both eyes and all related structures EOM: EOMs intact bilaterally Neck Neck: Yes normal visual inspection and Yes no meningeal signs Resp Effort & Inspection: normal respiratory effort, no respiratory distress, no stridor and no tripod positioning Cardio Rate: regular rate Heart sounds: S1 normal heart sound present and S2 normal heart sound present Skin Rashes: no rashes Wounds: no wounds Neuro General: patient oriented x3, tone normal and no meningeal signs Gait exam (Neuro): Normal gait present Extrem General: Yes normal to inspection Course Course Course Narrative: -rapid strep negative Results discussed with patient including worrisome signs and symptoms and strict return precautions, and when to return to the emergency department. They verb alized understanding and feel safe for discharge at this time. Medical Decision Making Medical Decision Making MDM Narrative: 36-year-old female with past medical history of anxiety, hypertension, presenting to the ED complaining sore/scratchy throat x 2 weeks. On exam hypertensive, anxious, NAD/nontoxic-appearing, posterior oropharynx WNL, uvula midline, talking in complete sentences, TMs WNL. Concern for viral pharyngitis or strep. Low suspicion for mononucleosis, [employer], or pneumonia Plan: Rapid strep, patient refused COVID/influenza testing Please refer to course for remaining clinical decision making, interpretation of labs/imaging results, and discussions with consultants and/or family members. Differential Diagnosis Differential Diagnoses: The differential diagnosis associated with the presentation includes As above Admission/Observation Consideration of admission/observation: Escalation of care including admission/observation considered Lab Data [facility] Lab Attestation statement: I reviewed the patient's lab results. Labs: Lab Results 09/23/22 Range/Units 08:33 S. pyogenes GrpA YULISA Negative (Negative) Radiology Impression Discussion of test interpretation with radiology: I have reviewed the radiologist's reading. External Record Review External record reviewed: Inpatient record, Office record, Outpatient record, Prior outpatient labs, Prior outpatient radiology, Primary care record and Outside ED record Tests considered The following testing was considered but not selected: As above Discharge Plan Discharge Clinical Impression: Pharyngitis Patient Disposition: Home, Self-Care Instructions: Pharyngitis (ED) Additional Instructions: You tested negative for strep throat. You likely have a viral illness Gargle with warm salt water Use viscous lidocaine as needed Take Tylenol and Motrin Follow-up with her doctor if symptoms persist or worsen, your unable to swallow or develops fever return to the ED Prescriptions: New lidocaine HCl [Lidocaine Viscous] 2 % solution 5 ml mucous membrane BID PRN (Reason: pain) Qty: 50 0RF No Action amlodipine 2.5 mg tablet 2.5 mg PO DAILY Qty: 30 0RF omeprazole 40 mg capsule,delayed release(DR/EC) 40 mg PO DAILY Qty: 30 0RF lorazepam [Ativan] 0.5 mg tablet 0.5 mg PO BEDTIME PRN (Reason: anxiety) Qty: 20 0RF ibuprofen 600 mg tablet 600 mg PO Q6H PRN (Reason: pain) Qty: 20 0RF amlodipine 10 mg tablet 10 mg PO DAILY Qty: 20 0RF bnpiantbuo-evlxpbwklubde-ervg [Fioricet] 50-300-40 mg capsule 1 cap PO Q8H PRN (Reason: pain) Qty: 20 0RF ofloxacin 0.3 % drops 10 drp otic (ears) DAILY 7 Days 0RF lorazepam [Ativan] 0.5 mg tablet 0.5 mg PO BEDTIME PRN (Reason: anxiety) Qty: 7 0RF cyclobenzaprine 10 mg tablet 10 mg PO TID PRN (Reason: muscle spasm) 7 Days Qty: 21 0RF azithromycin 250 mg tablet See Rx Instructions .ROUTE .COMPLEX Qty: 6 0RF Rx Instructions: For 250 mg dose pack: take 500 mg today (day 1), then 250 mg for 4 days (days 2-5) prednisone 20 mg tablet 40 mg PO DAILY 5 Days Qty: 10 0RF Referrals: Prateek Montanez III, MD [Primary Care Provider] -
--- NOTE | 2022-09-23 09:25 | PC.NURSE ---
Patient refusing swabs at this time, patient is generally well appearing at this time
[2022-09-23 09:31] VITALS: BP 157/99
== END 2022-09-23 09:36 | disposition home or self-care (01) ==
PROVIDERS: Emergency Provider Emergency Medicine; PCP Internal Medicine
DX: J02.9 Acute pharyngitis, unspecified (principal)
CPT/HCPCS: 87651; 99283

== ENCOUNTER 2022-09-26 03:01 | Emergency (ER) | payer OTHER, SELFPAY ==
[2022-09-26 03:14] VITALS: BP 147/108; PULSE 106; RESP 16; TEMP 36.3; O2SAT 97; BMI 29.8
[2022-09-26 04:14] VITALS: BP 142/103; PULSE 77; RESP 18; TEMP 36.1; O2SAT 99
--- NOTE | 2022-09-26 04:19 | ECG_ITS ---
Test Reason : ANXIETY Blood Pressure : / mmHG Vent. Rate : 082 BPM Atrial Rate : 082 BPM P-R Int : 156 ms QRS Dur : 076 ms QT Int : 386 ms P-R-T Axes : 061 018 044 degrees QTc Int : 450 ms Normal sinus rhythm Normal ECG When compared with ECG of 15-SEP-2020 00:31, Nonspecific T wave abnormality no longer evident in Anterior leads Referred By: Martha Romero Electronically Signed By:Kirk Nuñez
--- NOTE | 2022-09-26 04:20 | ED.GENADULT ---
HPI - General Adult General Chief complaint: General Medical Stated complaint: ?High blood pressure Time Seen by Provider: 09/26/22 04:14 Source: patient Mode of arrival: ambulatory Limitations: no limitations History of Present Illness HPI narrative: Patient comes to the emergency room complaining of a panic attack. Patient states that she woke up anxious because she went to sleep knowing that her blood pressure was a bit elevated. She was restless all night thinking about her blood pressure and that she had a panic attack. Patient has no chest pain, no shortness of breath. Headache. Patient takes Zoloft daily Related Data Previous Rx's Medication Instructions Recorded plnokxaheu-jfxdajzoawigj-iwsnlrtt 1 cap PO Q8H PRN pain #20 caps 05/12/20 50 mg-300 mg-40 mg capsule (Fioricet) amlodipine 2.5 mg tablet 2.5 mg PO DAILY #30 tabs 08/23/20 lorazepam 0.5 mg tablet (Ativan) 0.5 mg PO BEDTIME PRN anxiety #20 08/23/20 tabs omeprazole 40 mg capsule,delayed 40 mg PO DAILY #30 caps 08/23/20 release ibuprofen 600 mg tablet 600 mg PO Q6H PRN pain #20 tabs 08/28/20 amlodipine 10 mg tablet 10 mg PO DAILY #20 tabs 09/15/20 ofloxacin 0.3 % ear drops 10 drp otic (ears) DAILY 7 days 12/13/20 cyclobenzaprine 10 mg tablet 10 mg PO TID PRN muscle spasm 7 07/29/21 days #21 tabs azithromycin 250 mg tablet See Rx Instructions PO .COMPLEX #6 08/21/21 tabs prednisone 20 mg tablet 40 mg PO DAILY 5 days #10 tabs 08/21/21 lorazepam 0.5 mg tablet (Ativan) 0.5 mg PO BEDTIME PRN anxiety #7 02/15/22 tabs lidocaine HCl 2 % mucosal solution 5 ml mucous membrane BID PRN pain 09/23/22 (Lidocaine Viscous) #50 mL Allergies Allergy/AdvReac Type Severity Reaction Status Date / Time Penicillins [PENICILLINS] Allergy Mild HIVES Verified 02/15/22 03:40 diphenhydramine Allergy Unknown TACHYCARDIA Verified 02/15/22 03:40 [From BENADRYL] influenza virus vaccine, Allergy Unknown HIVES Verified 02/15/22 03:40 specific [FLU VACCINE] Review of Systems Review of Systems: Constitutional : No Weight loss, No Fever, No Chills, No Night Sweats, No Fatigue, No Malaise ENT/Mouth : No Hearing loss, No Ear Pain, No Nasal Congestion, No Sinus Pain, No Hoarseness, No sore throat, No Rhinorrhea, No Swallowing Difficulty Eyes: No Eye Pain, No Swelling, No Redness, No Foreign Body, No Discharge, No Vision Changes Cardiovascular : No Chest Pain, No SOB, No Dyspnea on Exertion, No Orthopnea, No Edema, No Palpitations Respiratory : No Cough, No Sputum, No Wheezing, No Smoke Exposure, No Dyspnea Gastrointestinal : No Nausea, No Vomiting, No Diarrhea, No Constipation, No abdominal Pain, No Hematochezia, No Melena Genitourinary : no irregular bleeding, No Dysuria, No Urinary Frequency, No Hematuria, No Urinary Incontinence, No Urgency, No Flank Pain, No Urinary Flow Changes, No Hesitancy Musculoskeletal : No joint pain, No Myalgias, No Joint Swelling Skin : No Skin Lesions, No rash Neuro : No Weakness, No Numbness, No Paresthesias, No Loss of Consciousness, No Dizziness, No Headache Psych : A panic attack, No Depression, No SI/HI/AH/VH, No Social Issues, Heme/Lymph: No Bruising, No Bleeding,No Lymphadenopathy Endocrine : No Polyuria, No Polydipsia, No Temperature Intolerance [facility] Past Medical History Medical History Anxiety Panic attack hypertension Preeclampsia Surgical History History of cholecystectomy Social History Social History Alcohol intake: never Patient Tobacco Use Status: Never used Tobacco Smoked in Last 30 Days: No Use of substances other than those prescribed or required for medical reasons: No Substance Use Type: Marijuana Advance Directives: No Advance Directives Information Provided: Yes Physical Exam ED Vital Signs: Vital Signs - 24 hr 09/26/22 03:14 09/26/22 04:14 Temperature 97.3 F 97 F Pulse Rate 106 H 77 Respiratory Rate 16 18 Blood Pressure 147/108 H 142/103 H Pulse Oximetry 97 99 Oxygen Delivery Method Room Air Room Air BMI result Body Mass Index 29.8 Const Other: Appearance: Alert. Oriented X3. No acute distress. Eyes: Pupils equal, round and reactive to light. ENT: Pharynx normal. Neck: Normal inspection. Neck supple. No lymph nodes noted. No crepitus CVS: Normal heart rate and rhythm. Pulses normal. Normal S1 and S2 Respiratory: No respiratory distress. Breath sounds normal. No Wheezing. No rales Abdomen: Soft and nontender. No rigidity. No distention. Skin: Skin warm and dry. Normal skin color. Normal skin turgor. Extremities: No lower extremity edema. No Lacerations. No Rash Neuro: Oriented X 3. No motor deficit. No sensory deficit. Moving all extremities. No slurred speech. CN 2 through 12 grossly intact Psych: calm, cooperative, normal affect Medical Decision Making Medical Decision Making MDM Narrative: -patient given 1 dose of Ativan p.o. -patient's blood pressure 142/103. Discussed with the patient that if her blood pressure is similar at home, I advised to increase amlodipine to 10 mg daily. Patient agrees with plan. Patient will follow-up with her primary care physician. -my interpretation EKG: Sinus rhythm, heart rate 82, no ST segment depression or elevation, no T-wave inversion, QTC 450 Discharge Plan Discharge Clinical Impression: Panic attack, Hypertension Patient Disposition: Home, Self-Care Instructions: Chronic Hypertension (ED), Panic Attack (ED) Additional Instructions: Please follow-up with your primary care physician tomorrow. If you have any worsening or new symptoms, please return to the emergency room or call 911 Prescriptions: No Action amlodipine 2.5 mg tablet 2.5 mg PO DAILY Qty: 30 0RF omeprazole 40 mg capsule,delayed release(DR/EC) 40 mg PO DAILY Qty: 30 0RF lorazepam [Ativan] 0.5 mg tablet 0.5 mg PO BEDTIME PRN (Reason: anxiety) Qty: 20 0RF ibuprofen 600 mg tablet 600 mg PO Q6H PRN (Reason: pain) Qty: 20 0RF amlodipine 10 mg tablet 10 mg PO DAILY Qty: 20 0RF cbsyjfidbu-oszkyasojgzfl-kfjv [Fioricet] 50-300-40 mg capsule 1 cap PO Q8H PRN (Reason: pain) Qty: 20 0RF ofloxacin 0.3 % drops 10 drp otic (ears) DAILY 7 Days 0RF lorazepam [Ativan] 0.5 mg tablet 0.5 mg PO BEDTIME PRN (Reason: anxiety) Qty: 7 0RF cyclobenzaprine 10 mg tablet 10 mg PO TID PRN (Reason: muscle spasm) 7 Days Qty: 21 0RF azithromycin 250 mg tablet See Rx Instructions .ROUTE .COMPLEX Qty: 6 0RF Rx Instructions: For 250 mg dose pack: take 500 mg today (day 1), then 250 mg for 4 days (days 2-5) prednisone 20 mg tablet 40 mg PO DAILY 5 Days Qty: 10 0RF lidocaine HCl [Lidocaine Viscous] 2 % solution 5 ml mucous membrane BID PRN (Reason: pain) Qty: 50 0RF
[2022-09-26] MEDS: LORazepam 1 MG TABLET PO (04:33)
== END 2022-09-26 04:40 | disposition home or self-care (01) ==
PROVIDERS: Emergency Provider Emergency Medicine; PCP Internal Medicine
DX: F41.0 Panic disorder [episodic paroxysmal anxiety] (principal); I10 Essential (primary) hypertension; F41.1 Generalized anxiety disorder; F43.0 Acute stress reaction; Z79.899 Other long term (current) drug therapy
CPT/HCPCS: 93005; 99283; 99284

== ENCOUNTER 2023-09-13 15:35 | Emergency (ER) | payer OTHER, SELFPAY ==
[2023-09-13 16:28] VITALS: BP 138/96; PULSE 96; RESP 18; TEMP 36.8; O2SAT 100; BMI 28.5
[2023-09-13] MEDS: Ondansetron ODT 4 MG TAB.RAPDIS TRANSLINGU (16:35)
== END 2023-09-13 19:39 | disposition left against medical advice (07) ==
LOC: HO.ED 19:38
PROVIDERS: Emergency Provider Emergency Medicine; PCP Internal Medicine
DX: R11.2 Nausea with vomiting, unspecified (principal); R10.13 Epigastric pain; Z53.21 Procedure and treatment not carried out due to patient leaving prior to being seen by health care provider
CPT/HCPCS: 99281; 99283

== ENCOUNTER 2024-02-10 19:09 | Emergency (ER) | payer OTHER, SELFPAY ==
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
[2024-02-10 19:54] VITALS: BP 155/82; PULSE 70; RESP 18; TEMP 36.5; O2SAT 97; BMI 28.0
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
[2024-02-10 21:18] VITALS: BP 135/92; PULSE 75; RESP 16; TEMP 36; O2SAT 98
[2024-02-10] MEDS: Acetaminophen 325 MG TABLET 975 MG PO (22:32)
[2024-02-10] MEDS: Ibuprofen 600 MG TABLET PO (22:32)
[2024-02-10 22:46] VITALS: BP 135/92; PULSE 75; RESP 16; TEMP 36; O2SAT 98
== END 2024-02-10 22:47 | disposition home or self-care (01) ==
PROVIDERS: Emergency Provider Internal Medicine; PCP Internal Medicine
DX: S00.83XA Contusion of other part of head, initial encounter (principal); W50.1XXA Accidental kick by another person, initial encounter; Y93.F9 Activity, other caregiving; Y92.230 Patient room in hospital as the place of occurrence of the external cause; Y99.0 Civilian activity done for income or pay
CPT/HCPCS: 70450; 99283; 99284

== ENCOUNTER 2024-11-12 17:18 | Emergency (ER) | payer OTHER, SELFPAY ==
[2024-11-12 17:25] VITALS: BP 139/85; PULSE 94; RESP 18; TEMP 37.3; O2SAT 100; BMI 38.7
--- NOTE | 2024-11-12 17:37 | ED_ITS ---
HPI - General Adult General Chief complaint: Upper Respiratory Symptoms Stated complaint: body chills/sore throat Time Seen by Provider: 11/12/24 17:35 Source: patient Mode of arrival: ambulatory Limitations: no limitations History of Present Illness ED Provider: Giacomo Jesus PA-C HPI narrative: 39-year-old female with medical history of hypertension, presents to the ED due to 2 days of body aches, sore throat, dry cough, and nasal congestion. Patient states her symptoms came on suddenly 2 days ago, has been taking 600 mg of ibuprofen with effect. Patient denies any recent sick contacts. MD complaint: body aches, sore throat, congestion Related Data Previous Rx's ?Medication ?Instructions ?Recorded phjfvkifyb-usmsctaqhmfoh-jjvrehax 1 cap PO Q8H PRN jaxon n #20 caps 05/12/20 50 mg-300 mg-40 mg capsule (Fioricet) amlodipine 2.5 mg tablet 2.5 mg PO DAILY #30 tabs 10/08 lorazepam 0.5 mg tablet (Ativan) 0.5 mg PO BEDTIME PRN anxiety #20 08/23/20 tabs omeprazole 40 mg capsule,delayed 40 mg PO DAILY #30 ca ps 08/23/20 release ibuprofen 600 mg tablet 600 mg PO Q6H PRN pain #20 t abs 08/28/20 amlodipine 10 mg tablet 10 mg PO DAILY #20 tabs 08/19 01/08 ofloxacin 0.3 % ear drops 10 drp otic (ears) DAILY 7 d ays 12/13/20 cyclobenzaprine 10 mg tablet 10 mg PO TID PRN muscle s pasm 7 07/29/21 days #21 tabs azithromycin 250 mg tablet See Rx Instructions PO .COM PLEX #6 08/21/21 tabs prednisone 20 mg tablet 40 mg (2 x 20 mg) PO DAILY 5 days 08/21/21 #10 tabs lorazepam 0.5 mg tablet (Ativan) 0.5 mg PO BEDTIME PRN anxiety #7 02/15/22 tabs lidocaine HCl 2 % mucosal solution 5 ml mucous membran e BID PRN pain 09/23/22 (Lidocaine Viscous) #50 mL Allergies Allergy/AdvReac Type Severity Reaction Status Date / Time Penicillins (PENICILLINS) Allergy Mild HIVES Verified 11/12/24 17:26 diphenhydramine (From Allergy Unknown TACHYCARDIA Verified 11/12/24 17:26 BENADRYL) influenza virus vaccine, Allergy Unknown HIVES Verified 11/12/24 17:26 specific (FLU VACCINE) Review of Systems Review of Systems: CONST: Negative for fever, chills. POS body aches HENT: Negative for neck pain/stiffness, headache. POS nasal congestion, sore throat EYES: Negative for discharge/pain or vision changes. RESP: Negative for hemoptysis and shortness of breath. POS dry cough CV: Negative chest pain, difficulty breathing, palpitations. ABD: Negative pain, nausea, vomiting. : Negative increase frequency, dysuria, blood in urine or stool. MUSC: Negative for muscle aches, edema. SKIN: Negative rash, lesions/sores. NEURO: Negative headache, dizziness, weakness. [facility] Past Medical History Attestation statement: The following information was validated with the patient. Source: old records reviewed and nursing notes reviewed Medical History Panic attack Preeclampsia Anxiety hypertension Surgical History History of cholecystectomy Social History Social History Alcohol intake: never Patient Tobacco Use Status: Never used Tobacco Substance Use Type: Marijuana Advance Directives: No Advance Directives Information Provided: No Physical Exam ED Vital Signs: Vital Signs - 24 hr 11/12/24 17:25 11/12/24 18:21 Temperature 99.2 F 99.6 F Pulse Rate 94 98 Respiratory Rate 18 16 Blood Pressure 139/85 136/89 Pulse Oximetry 100 99 Oxygen Delivery Method Room Air Room Air BMI result Body Mass Index 38.7 GENERAL APPEARANCE: ?AxOx3, generally well-appearing, no acute distress. HEENT: ?NC, AT. MMM. EOMI, clear conjunctiva, uvula midline, no tonsilar edema, no tonsilar exudates, mild erythema of the posterior oropharynx. NECK: ?Supple without lymphadenopathy.? No stiffness or restricted ROM. HEART:? Normal rate and regular rhythm, normal S1/S2, no m/r/g LUNGS:? CTAB, moving air well. No crackles or wheezes are heard. EXTREMITIES: ?Without cyanosis, clubbing or edema. NEUROLOGICAL: ?Grossly nonfocal. Alert and oriented, moving all 4 extremities. Observed to ambulate with normal gait. Skin: ?Warm and dry without any rash. Medical Decision Making Medical Decision Making [facility] Narrative: 39-year-old female with medical history of hypertension, presents to the ED due to 2 days of body aches, sore throat, dry cough, and nasal congestion. Patient states her symptoms came on suddenly 2 days ago, has been taking 600 mg of ibuprofen with effect. Patient denies any recent sick contacts. VSS, nontoxic appearing, no acute distress, normotensive 136/89, pulse 94 beats per minute, 16 breaths per minute, temp of 99.6?, O2 saturation 99% on room air. Physical exam reveals uvula midline, no tonsilar edema, no tonsilar exudates, mild erythema of the posterior oropharynx. Cardiac exam benign, normal rate and rhythm, no murmurs/rubs/gallops, lungs clear to auscultation bilaterally. Rapid strep negative for strep infection. Viral serology positive for COVID. Patient is stable, plan for discharge home for self-care. Patient counseled on taking 500 mg Tylenol with 400 mg ibuprofen every 6 hours to manage pain and discomfort, drinking plenty of fluids for hydration and plenty of rest for her improvement. Patient agreeable with plan, all questions answered. Differential Diagnosis Differential Diagnoses: The differential diagnosis associated with the presentation includes Pharyngitis COVID Flu Viral illness Admission/Observation Consideration of admission/observation: Escalation of care including admission/observation considered Lab Data [facility] Lab Attestation statement: I reviewed the patient's lab results. Labs: Lab Results 11/12/24 Range/Units 17:30 Influenza Type A (PCR) NEGATIVE (Negative) Influenza Type B (PCR) NEGATIVE (Negative) RSV RNA Qual (PCR) NEGATIVE (Negative) SARS-CoV-2 RNA (RT-PCR) POSITIVE A (Negative) S. pyogenes GrpA YULISA Negative (Negative) External Record Review External record reviewed: Inpatient record, Office record and Outpatient record Chronic Conditions Patient?s care impacted by: Hypertension Discharge Plan Discharge Clinical Impression: COVID-19 Patient Disposition: Home, Self-Care Instructions: Droplet Precautions (ED), COVID-19 (Coronavirus Disease 2019) (ED) Additional Instructions: You were evaluated in the ED today due to sore throat, body aches, nasal congestion. Your physical exam was reassuring with stable vital signs. Your rapid strep test was negative. Your viral testing which included COVID/flu/RSV was positive for COVID. COVID is a viral illness, no antibiotics are indicated for this condition. For improvement you can take 500 mg of Tylenol and 400 mg of ibuprofen every 6 hours to manage pain and discomfort while you improve. Additionally you can drink hot liquids such as tea with honey, warm showers seem to help alleviate congestion. Please return to the emergency department if you experience fevers over 100.4?, worsening body aches, worsening body chills, worsening sore throat, inability to handle your oral secretions, or any other new/concerning/worsening symptoms Prescriptions: No Action amlodipine 2.5 mg tablet 2.5 mg PO DAILY Qty: 30 0RF omeprazole 40 mg capsule,delayed release(DR/EC) 40 mg PO DAILY Qty: 30 0RF lorazepam [Ativan] 0.5 mg tablet 0.5 mg PO BEDTIME PRN (Reason: anxiety) Qty: 20 0RF ibuprofen 600 mg tablet 600 mg PO Q6H PRN (Reason: pain) Qty: 20 0RF amlodipine 10 mg tablet 10 mg PO DAILY Qty: 20 0RF manrfohvih-zslvbvbzlsvfw-tykv [Fioricet] 50-300-40 mg capsule 1 cap PO Q8H PRN (Reason: pain) Qty: 20 0RF ofloxacin 0.3 % drops 10 drp otic (ears) DAILY 7 Days 0RF lorazepam [Ativan] 0.5 mg tablet 0.5 mg PO BEDTIME PRN (Reason: anxiety) Qty: 7 0RF cyclobenzaprine 10 mg tablet 10 mg PO TID PRN (Reason: muscle spasm) 7 Days Qty: 21 0RF azithromycin 250 mg tablet See Rx Instructions .ROUTE .COMPLEX Qty: 6 0RF Rx Instructions: For 250 mg dose pack: take 500 mg today (day 1), then 250 mg for 4 days (days 2-5) prednisone 20 mg tablet 40 mg PO DAILY 5 Days Qty: 10 0RF lidocaine HCl [Lidocaine Viscous] 2 % solution 5 ml mucous membrane BID PRN (Reason: pain) Qty: 50 0RF Print Language: Nigerien
[2024-11-12 17:57] LABS: IDNOW Serial# 6674DD1D; Strep A Nucleic Acid Negative (Negative)
[2024-11-12 18:21] VITALS: BP 136/89; PULSE 98; RESP 16; TEMP 37.6; O2SAT 99
[2024-11-12 18:24] LABS: Resp Syncy Virus RNA Qual PCR NEGATIVE (Negative); SARS COV2 PCR INHOUSE POSITIVE (Negative)
[2024-11-12 19:22] VITALS: BP 136/89; PULSE 98; RESP 16; TEMP 37.6; O2SAT 99
== END 2024-11-12 19:23 | disposition home or self-care (01) ==
PROVIDERS: Emergency Provider Emergency Medicine Emergency Medical Services; PCP Internal Medicine
DX: U07.1 COVID-19 (principal); J02.9 Acute pharyngitis, unspecified
CPT/HCPCS: 87637; 87651; 99283

== ENCOUNTER 2024-12-13 02:53 | Emergency (ER) | payer SELFPAY ==
--- NOTE | ~2024-12-13 | XR_ITS ---
CLINICAL HISTORY: constipation 1 view abdomen Comparison: None provided Findings: Stool seen throughout the colon to the level of the rectum without colonic distension. No dilated small bowel loops. No pneumatosis. Status post cholecystectomy. Osseous structures are unremarkable. IMPRESSION: Stool-filled colon to the level of the rectum without colonic distention. No evidence of bowel obstruction but finding can be seen in constipation. This document has been electronically signed by: Terence Chaudhari MD on 12/13/2024 03:33:27
[2024-12-13 03:00] VITALS: BP 142/95; PULSE 82; RESP 18; TEMP 36.6; O2SAT 100; BMI 26.2
[2024-12-13 03:58] LABS: Hematocrit 30.9 % (37.0-47.0); Hemoglobin 10.0 g/dl (12.0-16.0); Imm Gran Abs Auto 0.02 X10*3/uL (0.00-0.03); Imm Gran Pct Auto 0.3 % (0.0-0.4); Lymphocytes Absolute Auto 1.6 X10*3/uL (1.2-4.9); MANUAL DIFF FLAG NO; Mean Corpuscular HGB Conc 32.4 g/dl (31.0-35.0); Mean Corpuscular Hemoglobin 23.9 pg (27.0-33.0); Mean Corpuscular Volume 73.9 fL (80.0-98.0); NRBC Abs Auto 0.000 X10*3/uL (0.0-0.012); NRBC Pct Auto 0.0 /100WBC (0.0-0.2); Platelet Count 199 X10*3/uL (160-400); Red Blood Count 4.18 X10*6/uL (4.20-5.50); White Blood Count 6.1 X10*3/uL (4.8-10.8)
[2024-12-13 04:06] LABS: Appearance Urine Clear; Glucose Urine UA Negative (Negative); PH 7.0 (5.0-9.0); Specific Gravity - Urine <= 1.005 (1.005-1.025)
[2024-12-13 04:11] LABS: Alanine Aminotransferase 8 U/L (0-31); Albumin Level 3.9 g/dL (3.5-5.0); Alkaline Phosphatase 64 U/L (39-117); Anion Gap 9 (12-20); Aspartate Amino Transferase 17 U/L (5-31); Blood Urea Nitrogen 10 mg/dL (9-16); Calcium 8.6 mg/dL (8.4-10.2); Carbon Dioxide 25 mmol/L (22-29); Chloride 112 mmol/L (96-108); Creatinine Clr Calc Pharmacy 94.8; Estimated Glomerular Filt Rate > 60; Potassium 4.1 mmol/L (3.3-5.1); Sodium 142 mmol/L (135-145); Total Protein 6.2 g/dL (6.5-8.0)
--- OUTSIDE RECORDS SUMMARY | 2024-12-13 04:23 | XMS_ITS ---
[facility] Name [facility] Organization Unknown Care Team Organization Name Specialty Phone Email Start Date End Da te [facility] BRYSON [facility]ET[facility] Primary Care 02/25/2022 4
--- OUTSIDE RECORDS SUMMARY | 2024-12-13 04:23 | XMS_ITS | Patient Health Record ---
Author Organization [facility] Address [address] [place] [address] Care Team Providers Care Manager Implementation Name Role Phone Prateek Montanez MD Primary Care Provider Baron Kramer Jr Unavailable Allergies Allergen (clinical drug ingredient) Drug/Non Drug Allergy documented on EMR Reaction Allergy Type Onset Date Status diphenhydramine Benadryl Unknown Drug Allergy A ctive Vaccine product containing Influenza virus antigen (medicinal product) FLU VACCINE (uncoded) Unknown Allergy Active Reason For Referral No Information Medications Medication SIG (Take, Route, Frequency, Duration) Notes Start Date End Date Status Ondansetron HCl 4 MG 1 tablet Orally Onc e a day as needed for nausea for 30 day(s) 01/17/2022 Active Multivitamin & Mineral Active NexIUM 40 MG 1 capsule Orally Onc e a day for 30 days 07/19/2020 Active Pantoprazole Sodium 40 MG 1 tablet Orall y Once a day for 30 day(s) 08/15/2020 Active NexIUM 24HR 20 MG 1 capsule Orally Onc e a day for 30 day(s) 08/15/2020 Active Immunizations Vaccine Route Administration Date Status Comme nts Influenza Unknown 07/19/2020 Refused Social History Tobacco Use: Social History Observation Description Date Details (start date - stop date) Never Smoker NA - NA Tobacco Use/Smoking Question Answer Notes Patient is a nonsmoker Alcohol Screen Question Answer Notes Did you have a drink contain ing alcohol in the past year? Yes How often did you have a dri nk containing alcohol in the past year? Never (0 point) How many drinks did you have on a typical day when you were drinking in the past year? 1 or 2 drinks (0 point) How often did you have 6 or more drinks on one occasion in the past year? Never (0 point) Points 0 Interpretation Negative Problems Problem Type SNOMED Code ICD Code Onset Dates Problem Status W/U Status Risk Notes Problem [id number] Epigastric pain (R10.13) Active confirmed Plan Of Treatment No Information Insurance Providers Payer Name Payer Address Payer Phone Subscriber Number Group Number Insured Name Patient Relationship to Insured Coverage Start Date Coverage End Date [facility] [address] [address] [place], [place] [id number] DAYA FONTANEZ Self - patient is the insured Medical (General) History Medical History History ICD Code hx of preclampsia hx of gerd anxiety carpal tunnel migraines/tension headaches Denies [place],DM,CVA,Lung disease,renal dise ase PTSD PMDD ADHD Surgical History Surgery Date(Month/Year) cholecystectomy appendectomy
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
--- NOTE | 2024-12-13 04:47 | ED.ABDPAIN ---
HPI - Abdominal Pain General Chief Complaint: Abdominal Pain Stated Complaint: abd pain Time Seen by Provider: 12/13/24 04:09 Source: patient Mode of arrival: ambulatory Limitations: no limitations History of Present Illness ED Provider: Dr. Pauline Thornton HPI narrative: 39-year-old female with history of hypertension presenting with abdominal bloating, constipation ongoing for the last several days. She admits that she did have a small bowel movement today but did not feel like she voided enough. Has been urinating normally. Denies dysuria or hematuria. No hematochezia or melena when she does have a bowel movement. Admits that she has had issues with constipation in the past. Use to be treated well with regular exercise but admits that she has not been very active lately. She denies associated fever, vomiting, chest pain or difficulty breathing. No known sick contacts or recent travel. She is currently menstruating. Related Data Previous Rx's ?Medication ?Instructions ?Recorded uppuvxwztr-wsolwzlausbuw-wwgabmdr 1 cap PO Q8H PRN pain #20 caps 05/12/20 50 mg-300 mg-40 mg capsule (Fioricet) amlodipine 2.5 mg tablet 2.5 mg PO DAILY #30 tabs 08/23/20 lorazepam 0.5 mg tablet (Ativan) 0.5 mg PO BEDTIME PRN anxiety #20 08/23/20 tabs omeprazole 40 mg capsule,delayed 40 mg PO DAILY #30 caps 08/23/20 release ibuprofen 600 mg tablet 600 mg PO Q6H PRN pain #20 tabs 08/28/20 amlodipine 10 mg tablet 10 mg PO DAILY #20 tabs 09/15/20 ofloxacin 0.3 % ear drops 10 drp otic (ears) DAILY 7 days 12/13/20 cyclobenzaprine 10 mg tablet 10 mg PO TID PRN muscle spasm 7 07/29/21 days #21 tabs azithromycin 250 mg tablet See Rx Instructions PO .COMPLEX #6 08/21/21 tabs prednisone 20 mg tablet 40 mg (2 x 20 mg) PO DAILY 5 days 08/21/21 #10 tabs lorazepam 0.5 mg tablet (Ativan) 0.5 mg PO BEDTIME PRN anxiety #7 02/15/22 tabs lidocaine HCl 2 % mucosal solution 5 ml mucous membrane BID PRN pain 09/23/22 (Lidocaine Viscous) #50 mL dicyclomine 20 mg tablet 20 mg PO TID #10 tabs 12/13/24 polyethylene glycol 3350 17 17 g PO DAILY #238 grams 12/13/24 gram/dose oral powder (Miralax) Allergies Allergy/AdvReac Type Severity Reaction Status Date / Time Penicillins (PENICILLINS) Allergy Mild HIVES Verified 12/13/24 03:03 diphenhydramine (From Allergy Unknown TACHYCARDIA Verified 12/13/24 03:03 BENADRYL) influenza virus vaccine, Allergy Unknown HIVES Verified 12/13/24 03:03 specific (FLU VACCINE) Review of Systems Review of Systems As per HPI, full review of systems performed and negative but for the above mentioned pertinent positives and negatives. FOR[facility]LY [facility] Past Medical History Medical History Panic attack Preeclampsia Anxiety hypertension Surgical History History of cholecystectomy Social History Social History Alcohol intake: never Patient Tobacco Use Status: Never used Tobacco Substance Use Type: Marijuana Advance Directives: No Advance Directives Information Provided: Yes Physical Exam ED Exam Exam: GENERAL: Well-Appearing, conversant, no acute distress. SKIN: Normal skin color for ethnicity, warm, dry, no rashes noted. HEENT: Normocephalic, atraumatic, no stridor, posterior oropharynx nonerythematous, dentition intact, EOMI. NECK: Soft, supple, full ROM, midline structures nontender, no step-offs, no deformities, no lymphadenopathy. CHEST: Heart regular rate and rhythm, no murmurs, symmetric chest rise and fall. PULMONARY: Clear to auscultation bilaterally, no labored breathing, no wheezes/rhales/rhonchi. ABDOMINAL: Soft, nondistended, nontender, quiet bowel sounds in all quadrants, no palpable masses, no rebound or guarding. : Deferred. MUSCULOSKELETAL: Normal tone, full range of motion, no deformities, no peripheral edema. NEURO: Alert and oriented x3, CN II through XII intact, equal strength and sensation bilateral upper and lower extremities, no focal neurologic deficits. PSYCHIATRIC: Normal affect, fluid speech, good eye contact and appropriate demeanor. Vital Signs: Vital Signs - 24 hr 12/13/24 03:00 12/13/24 05:04 Temperature 97.9 F 98.0 F Pulse Rate 82 72 Respiratory Rate 18 16 Blood Pressure 142/95 H 134/77 Pulse Oximetry 100 99 Oxygen Delivery Method Room Air Room Air BMI result Body Mass Index 26.2 Medical Decision Making Medical Decision Making [facility] Narrative: This patient presents today with a chief complaint of abdominal pain. Differential diagnosis for this patient is broad. It includes appendicitis, cholecystitis, bowel obstruction, peptic ulcer disease, pyelonephritis, vascular pathology, among many others. A broad-based workup based on history and physical examination was obtained. Blood work is reassuring. No evidence of infection. Constipation seen on KUB. Discussed use of laxatives. Provided with prescriptions. Using shared decision making, plan for discharge home to follow-up with primary care and/or specialist. Patient understands and agrees with plan for discharge. Discharged home in stable condition. Differential Diagnosis Differential Diagnoses: The differential diagnosis associated with the presentation includes Admission/Observation Consideration of admission/observation: Escalation of care including admission/observation considered Lab Data [facility] Lab Attestation statement: I reviewed the patient's lab results. 12/13/24 03:49 12/13/24 03:49 Labs: Lab Results 12/13/24 Range/Units 03:49 WBC 6.1 (4.8-10.8) X10*3/uL RBC 4.18 L (4.20-5.50) X10*6/uL Hgb 10.0 L (12.0-16.0) g/dl Hct 30.9 L (37.0-47.0) % MCV 73.9 L (80.0-98.0) fL MCH 23.9 L (27.0-33.0) pg MCHC 32.4 (31.0-35.0) g/dl RDW 16.6 H (11.0-16.0) % Plt Count 199 (160-400) X10*3/uL MPV 11.0 (9.4-12.3) fL Immature Gran % (Auto) 0.3 (0.0-0.4) % Neut % (Auto) 59.2 (45-73) % Lymph % (Auto) 25.9 (20-40) % [place] % (Auto) 6.6 (2-11) % Eos % (Auto) 7.2 H (0-4) % Baso % (Auto) 0.8 (0-2) % Lymph # (Auto) 1.6 (1.2-4.9) X10*3/uL [place] # (Auto) 0.4 (0.1-1.2) X10*3/uL Eos # (Auto) 0.4 (0.0-0.4) X10*3/uL Baso # (Auto) 0.1 (0.0-0.2) X10*3/uL Abs Immat Gran (auto) 0.02 (0.00-0.03) X10*3/uL Absolute Neuts (auto) 3.6 (2.0-8.3) x10*3/uL Absolute Nucleated RBC 0.000 (0.0-0.012) X10*3/uL Nucleated RBC % (auto) 0.0 (0.0-0.2) /100WBC Sodium 142 (135-145) mmol/L Potassium 4.1 (3.3-5.1) mmol/L Chloride 112 H (96-108) mmol/L Carbon Dioxide 25 (22-29) mmol/L Anion Gap 9 L (12-20) BUN 10 (9-16) mg/dL Creatinine 0.74 (0.5-1.4) mg/dL Estim Creat Clear Calc 94.8 Estimated GFR > 60 Random Glucose 96 (60-115) mg/dL Calcium 8.6 D (8.4-10.2) mg/dL Total Bilirubin 0.2 (0.0-1.0) mg/dL AST 17 (5-31) U/L ALT 8 (0-31) U/L Alkaline Phosphatase 64 (39-117) U/L Total Protein 6.2 L (6.5-8.0) g/dL Albumin 3.9 (3.5-5.0) g/dL Urine Color Yellow Urine Appearance Clear Urine pH 7.0 (5.0-9.0) Ur Specific [place] <= 1.005 (1.005-1.025) Urine Protein Negative (Neg-Trace) mg/dL Urine Glucose (UA) Negative (Negative) mg/dL Urine Ketones Negative (Negative) mg/dL Urine Blood Negative (Negative) Urine Nitrite Negative (Negative) Ur Leukocyte Esterase Negative (Negative) Urine RBC 0-2 (0-2) /HPF Urine WBC 0-5 (0-5) /HPF Ur Squamous Epith Cells 0-2 (0-2) /HPF Urine Bacteria None Seen (None Seen) Hyaline Casts 0-2 (0-2) /LPF Radiology Impression Discussion of test interpretation with radiology: I have reviewed the radiologist's reading. Radiologist Impression: 1 view abdomen Comparison: None provided Findings: Stool seen throughout the colon to the level of the rectum without colonic distension. No dilated small bowel loops. No pneumatosis. Status post cholecystectomy. Osseous structures are unremarkable. IMPRESSION: Stool-filled colon to the level of the rectum without colonic distention. No evidence of bowel obstruction but finding can be seen in constipation. This document has been electronically signed by: Terence Chaudhari MD on 12/13/2024 03:33:2 External Record Review External record reviewed: Inpatient record Chronic Conditions Patient?s care impacted by: Hypertension Social Determinants Patient?s care significantly limited by Social Determinants of Health including: Problems related to primary support group Medications Administered Discontinued Medications Generic Name Dose Route Start Last Admin Trade Name Freq PRN Reason Stop Dose Admin Dicyclomine HCl 20 mg 12/13/24 04:48 12/13/24 04:57 Dicyclomine Hcl 10 Mg Capsule PO 12/13/24 04:49 20 mg ONCE ONE Administration Polyethylene Glycol 17 gm 12/13/24 04:48 12/13/24 04:57 Polyethylene Glycol 3350 17 Gm Powd.Pack PO 12/13/24 04:49 17 gm ONCE ONE Administration Discharge Plan Discharge Clinical Impression: Constipation, Abdominal bloating Patient Disposition: Home, Self-Care Instructions: High Fiber Diet (ED), Gas and Bloating (ED) Additional Instructions: Constipation Remedy 1 Lb prunes 1 Lb pitless dates 1 Lb raisins 16 teabags Smooth Move tea brewed in 2 cups water 1 Cup brown sugar 1 Cup lemon juice Mix in a business support assistant Put in freezer (never completely freezes) Can be used as a spread on crackers, toast, etc. (about 1-2 tablespoons per dose) Of water over the next several days drink plenty of water over the next several days. Use MiraLax for constipation, dicyclomine for abdominal bloating. Return to the ER with any new or worsening symptoms including: Worsening pain despite medication, fevers greater than 100?, inability to tolerate food or drink, any new symptom that concerns you. Call 911 with any medical emergency. Prescriptions: New polyethylene glycol 3350 [Miralax] 17 gram/dose powder 17 g PO DAILY Qty: 238 0RF dicyclomine 20 mg tablet 20 mg PO TID Qty: 10 0RF No Action amlodipine 2.5 mg tablet 2.5 mg PO DAILY Qty: 30 0RF omeprazole 40 mg capsule,delayed release(DR/EC) 40 mg PO DAILY Qty: 30 0RF lorazepam [Ativan] 0.5 mg tablet 0.5 mg PO BEDTIME PRN (Reason: anxiety) Qty: 20 0RF ibuprofen 600 mg tablet 600 mg PO Q6H PRN (Reason: pain) Qty: 20 0RF amlodipine 10 mg tablet 10 mg PO DAILY Qty: 20 0RF ephmcjegrg-ulrvtweznjqtw-icgp [Fioricet] 50-300-40 mg capsule 1 cap PO Q8H PRN (Reason: pain) Qty: 20 0RF ofloxacin 0.3 % drops 10 drp otic (ears) DAILY 7 Days 0RF lorazepam [Ativan] 0.5 mg tablet 0.5 mg PO BEDTIME PRN (Reason: anxiety) Qty: 7 0RF cyclobenzaprine 10 mg tablet 10 mg PO TID PRN (Reason: muscle spasm) 7 Days Qty: 21 0RF azithromycin 250 mg tablet See Rx Instructions .ROUTE .COMPLEX Qty: 6 0RF Rx Instructions: For 250 mg dose pack: take 500 mg today (day 1), then 250 mg for 4 days (days 2-5) prednisone 20 mg tablet 40 mg PO DAILY 5 Days Qty: 10 0RF lidocaine HCl [Lidocaine Viscous] 2 % solution 5 ml mucous membrane BID PRN (Reason: pain) Qty: 50 0RF Stand Alone Forms: Work/School Release Interventions: ED Discharge Assessment Last Done: 12/13/24 05:04 Discharge Date/Time: 12/13/24 05:05 Print Language: Persian
[2024-12-13 05:04] VITALS: BP 134/77; PULSE 72; RESP 16; TEMP 36.7; O2SAT 99
== END 2024-12-13 05:05 | disposition home or self-care (01) ==
PROVIDERS: Emergency Provider Emergency Medicine; PCP Internal Medicine
DX: R10.9 Unspecified abdominal pain (principal); K59.00 Constipation, unspecified; I10 Essential (primary) hypertension; Z79.899 Other long term (current) drug therapy
CPT/HCPCS: 36415; 74018; 80053; 81001; 85025; 99282; 99283

== ENCOUNTER → 2024-12-13 03:15 | Outpatient (BNV) | payer SELFPAY | PROVIDERS: Visit Provider Student in an Organized Health Care Education/Training Program | DX: K59.00 Constipation, unspecified (principal) | CPT/HCPCS: 74018 ==

== ENCOUNTER 2025-03-01 16:08 | Emergency (ER) | payer SELFPAY ==
[2025-03-01 16:13] VITALS: BP 150/96; PULSE 105; RESP 18; TEMP 36.4; O2SAT 98; BMI 26.5
--- NOTE | 2025-03-01 16:15 | ED_ITS ---
HPI - General Adult General Chief complaint: General Medical Stated complaint: headache, light headedness Time Seen by Provider: 03/01/25 16:26 History of Present Illness ED Provider: jose GUTIERREZ narrative: Date & Time: 2025-03-01 Patient Name: JESSY: N: Author / Clinician: Sachin Walsh MD History Chief Complaint Lightheadedness; possible menstrual cramps/possible . History of Present Illness The patient presents with a sudden onset of mild lightheadedness that began earlier today. She states it is noticeable but not severe and denies any sensation of impending syncope. She denies vertigo (no spinning), weakness, numbness, tingling, vision changes, speech difficulties, nausea, or vomiting. Appetite is normal. She also reports abdominal sensations similar to menstrual cramps. She is not currently bleeding and denies vaginal discharge. She had unprotected intercourse over the weekend of 1 Feb and performed a home test (result not specified). On arrival her pulse was elevated; repeat heart rate now 80 bpm. She was evaluated today with urine studies, test, and additional blood work (results pending). Past History Medical: Recently diagnosed hypertension (prescribed amlodipine, not yet started). Surgical: Denies prior surgeries. Medications: Amlodipine (not yet started). Allergies: Not discussed. Social & Family History Social: Denies cigarette smoking, daily alcohol, or regular drug use. Recently obtained health insurance. Family: Not discussed. Review of Systems HEENT: denies vision changes. Neurologic: denies weakness, numbness, tingling, or speech changes. Cardiovascular: reports prior elevated pulse, now improved. Gastrointestinal: appetite normal; denies nausea or vomiting. Genitourinary: reports menstrual-like cramping; denies current vaginal bleeding or discharge. Musculoskeletal: not specifically reviewed. No other systems reviewed. Physical Examination Vital Signs: Measure Value Heart rate 80 bpm (repeat) General Appearance: Alert, well-hydrated. Physical Exam: - HEENT: Oropharynx moist; normal. - Cardiovascular: Heart sounds regular (rate 80 bpm). - Abdomen: Soft, non-tender to palpation. - Back/CVA: No lumbar or CVA tenderness. - Neurologic: Follows commands; no focal deficit observed. Assessment & Plan The patient presents with mild lightheadedness and possible early versus menstrual-related symptoms. Physical exam is benign; vitals improved after initial tachycardia. Laboratory studies (urinalysis, test, blood work) are pending. Problem #1: Lightheadedness Assessment: Sudden mild lightheadedness without associated neurologic or gastrointestinal symptoms; vitals now normal; benign exam. Plan: - Monitor in ED while awaiting laboratory results. - Reassess vitals and symptoms once results available. Problem #2: Possible early / menstrual cramping Assessment: Unprotected intercourse 1 Nov; home test done (result not provided); menstrual-type cramps without bleeding. Plan: - Serum and urine testing ordered; results pending. - Provide counseling based on test outcome when available. Upon review of labs hCG in the serum is negative non Problem #3: chronic hypertension Assessment: Recently prescribed amlodipine started but paying [id number] Plan: - Discuss antihypertensive initiation after acute evaluation is complete. Will follow up with patient once laboratory results return. Related Data Previous Rx's ?Medication ?Instructions ?Recorded dalmauricv-fyofyogfjkvze-rimbejdv 1 cap PO Q8H PRN jaxon n #20 caps 05/12/20 50 mg-300 mg-40 mg capsule (Fioricet) amlodipine 2.5 mg tablet 2.5 mg PO DAILY #30 tabs 10/08 lorazepam 0.5 mg tablet (Ativan) 0.5 mg PO BEDTIME PRN anxiety #20 08/23/20 tabs omeprazole 40 mg capsule,delayed 40 mg PO DAILY #30 ca ps 08/23/20 release ibuprofen 600 mg tablet 600 mg PO Q6H PRN pain #20 t abs 08/28/20 amlodipine 10 mg tablet 10 mg PO DAILY #20 tabs 08/19 01/08 ofloxacin 0.3 % ear drops 10 drp otic (ears) DAILY 7 d ays 12/13/20 cyclobenzaprine 10 mg tablet 10 mg PO TID PRN muscle s pasm 7 07/29/21 days #21 tabs azithromycin 250 mg tablet See Rx Instructions PO .COM PLEX #6 08/21/21 tabs prednisone 20 mg tablet 40 mg (2 x 20 mg) PO DAILY 5 days 08/21/21 #10 tabs lorazepam 0.5 mg tablet (Ativan) 0.5 mg PO BEDTIME PRN anxiety #7 02/15/22 tabs lidocaine HCl 2 % mucosal solution 5 ml mucous membran e BID PRN pain 09/23/22 (Lidocaine Viscous) #50 mL dicyclomine 20 mg tablet 20 mg PO TID #10 tabs polyethylene glycol 3350 17 17 g PO DAILY #238 grams 0 12/13/24 gram/dose oral powder (Miralax) amlodipine 5 mg tablet 5 mg PO DAILY 30 days #30 ta bs 03/01/25 Allergies Allergy/AdvReac Type Severity Reaction Status Date / Time Penicillins (PENICILLINS) Allergy Mild HIVES Verified 03/01/25 16:14 diphenhydramine (From Allergy Unknown TACHYCARDIA Verified 03/01/25 16:14 BENADRYL) influenza virus vaccine, Allergy Unknown HIVES Verified 03/01/25 16:14 specific (FLU VACCINE) PMFSH Past Medical History Medical History Panic attack Preeclampsia Anxiety hypertension Surgical History History of cholecystectomy Social History Social History Alcohol intake: never Patient Tobacco Use Status: Never used Tobacco Substance Use Type: Marijuana Advance Directives: No Advance Directives Information Provided: Yes Do you have a plan to hurt others: No Plan Physical Exam ED Vital Signs: Vital Signs - 24 hr 03/01/25 16:13 03/01/25 18:13 03/01/25 18:14 Temperature 97.5 F 97.8 F Pulse Rate 105 H 68 68 Respiratory Rate 18 16 16 Blood Pressure 150/96 H 152/75 H 152/75 H Pulse Oximetry 98 100 100 Oxygen Delivery Method Room Air BMI result Body Mass Index 26.5 Course Course Course Narrative: This is a Rapid Medical Examination (RME) performed by Kermit Hinojosa PA-C in triage. Full HPI, ROS, assessment and treatment plan per primary provider in the Main ED. Hx: 39 yo F here reporting pelvic cramping, light headedness, heart pounding x2- 3 days. states she may be . LMP 02/03. took home test - negative. Plan: labs, hcg Medical Decision Making Medical Decision Making MDM Narrative: see above. Patient was reassured by negative workup including negative test and urinalysis. We will discharge home watchful waiting Lab Data 03/01/25 16:43 03/01/25 16:43 Labs: Lab Results 03/01/25 03/01/25 Range/Units 16:43 17:03 WBC 8.3 (4.8-10.8) X10*3/uL RBC 4.79 (4.20-5.50) X10*6/uL Hgb 11.0 L (12.0-16.0) g/dl Hct 35.1 L (37.0-47.0) % MCV 73.3 L (80.0-98.0) fL MCH 23.0 L (27.0-33.0) pg MCHC 31.3 (31.0-35.0) g/dl RDW 16.7 H (11.0-16.0) % Plt Count 240 (160-400) X10*3/uL MPV 11.8 (9.4-12.3) fL Immature Gran % (Auto) 0.4 (0.0-0.4) % Neut % (Auto) 68.0 (45-73) % Lymph % (Auto) 19.4 L (20-40) % [place] % (Auto) 7.2 (2-11) % Eos % (Auto) 4.0 (0-4) % Baso % (Auto) 1.0 (0-2) % Lymph # (Auto) 1.6 (1.2-4.9) X10*3/uL [place] # (Auto) 0.6 (0.1-1.2) X10*3/uL Eos # (Auto) 0.3 (0.0-0.4) X10*3/uL Baso # (Auto) 0.1 (0.0-0.2) X10*3/uL Abs Immat Gran (auto) 0.03 (0.00-0.03) X10*3/uL Absolute Neuts (auto) 5.7 (2.0-8.3) x10*3/uL Absolute Nucleated RBC 0.000 (0.0-0.012) X10*3/uL Nucleated RBC % (auto) 0.0 (0.0-0.2) /100WBC Smear Tech's Comments VERIFIED Sodium 139 (135-145) mmol/L Potassium 4.0 (3.3-5.1) mmol/L Chloride 107 (96-108) mmol/L Carbon Dioxide 28 (22-29) mmol/L Anion Gap 8 L (12-20) BUN 15 (9-16) mg/dL Creatinine 1.15 (0.5-1.4) mg/dL Estim Creat Clear Calc 61.3 Estimated GFR 53 Random Glucose 94 (60-115) mg/dL Calcium 9.0 (8.4-10.2) mg/dL Magnesium 1.9 (1.6-2.6) mg/dL Total Bilirubin 0.2 (0.0-1.0) mg/dL AST 18 (5-31) U/L ALT 10 (0-31) U/L Alkaline Phosphatase 62 (39-117) U/L Total Protein 7.2 (6.5-8.0) g/dL Albumin 4.6 (3.5-5.0) g/dL Beta HCG, Quant < 2 mIU/mL Urine Color Yellow Urine Appearance Turbid Urine pH >= 9.0 (5.0-9.0) Ur Specific [place] 1.020 (1.005-1.025) Urine Protein Negative (Neg-Trace) mg/dL Urine Glucose (UA) Negative (Negative) mg/dL Urine Ketones Negative (Negative) mg/dL Urine Blood Negative (Negative) Urine Nitrite Negative (Negative) Ur Leukocyte Esterase Negative (Negative) Discharge Plan Discharge Clinical Impression: Hypertension Patient Disposition: Home, Self-Care Instructions: Chronic Hypertension (DC) Additional Instructions: _ DISCHARGE DIAGNOSES: Chronic hypertension Mild lightheadedness and abdominal cramping with negative test and reassuring lab work HISTORY OF PRESENTATION: ?Lightheadedness and cramping EMERGENCY DEPARTMENT COURSE,TESTS, TREATMENTS: While in the ED today your urinalysis did not suggest UTI. Your test, electrolytes and blood counts were all normal and reassuring negative DISCHARGE MEDICATIONS: ?[We have made no changes to your regular medication regimen] FOLLOW-UP: ?Call your primary or general physician soon as possible to discuss your symptoms, your ED visit and to discuss follow up plans Continue with your previously scheduled primary doctor follow up INSTRUCTIONS ?& RETURN PRECAUTIONS: If any symptoms change first call your primary physician, if it is after-hours your primary doctors office should have a provider director of clinical education you can speak with. If the symptoms are severe or very concerning to you then call 911 or return to the ED. [07] Sachin Walsh MD Emergency Physician [facility] Prescriptions: New amlodipine 5 mg tablet 5 mg PO DAILY 30 Days Qty: 30 3RF No Action amlodipine 2.5 mg tablet 2.5 mg PO DAILY Qty: 30 0RF omeprazole 40 mg capsule,delayed release(DR/EC) 40 mg PO DAILY Qty: 30 0RF lorazepam [Ativan] 0.5 mg tablet 0.5 mg PO BEDTIME PRN (Reason: anxiety) Qty: 20 0RF ibuprofen 600 mg tablet 600 mg PO Q6H PRN (Reason: pain) Qty: 20 0RF amlodipine 10 mg tablet 10 mg PO DAILY Qty: 20 0RF tfopuzsqjg-hgwccujelhijx-frgo [Fioricet] 50-300-40 mg capsule 1 cap PO Q8H PRN (Reason: pain) Qty: 20 0RF ofloxacin 0.3 % drops 10 drp otic (ears) DAILY 7 Days 0RF lorazepam [Ativan] 0.5 mg tablet 0.5 mg PO BEDTIME PRN (Reason: anxiety) Qty: 7 0RF cyclobenzaprine 10 mg tablet 10 mg PO TID PRN (Reason: muscle spasm) 7 Days Qty: 21 0RF azithromycin 250 mg tablet See Rx Instructions .ROUTE .COMPLEX Qty: 6 0RF Rx Instructions: For 250 mg dose pack: take 500 mg today (day 1), then 250 mg for 4 days (days 2-5) prednisone 20 mg tablet 40 mg PO DAILY 5 Days Qty: 10 0RF lidocaine HCl [Lidocaine Viscous] 2 % solution 5 ml mucous membrane BID PRN (Reason: pain) Qty: 50 0RF polyethylene glycol 3350 [Miralax] 17 gram/dose powder 17 g PO DAILY Qty: 238 0RF dicyclomine 20 mg tablet 20 mg PO TID Qty: 10 0RF Interventions: ED Discharge Assessment Last Done: 03/01/25 18:14 Discharge Date/Time: 03/01/25 18:38 Print Language: Venezuelan
--- NOTE | 2025-03-01 17:06 | PC.NURSE ---
Pt c/o 2-3days of lower abd cramping and dizziness. pt is concerned for .
[2025-03-01 17:12] LABS: Alanine Aminotransferase 10 U/L (0-31); Albumin Level 4.6 g/dL (3.5-5.0); Alkaline Phosphatase 62 U/L (39-117); Anion Gap 8 (12-20); Aspartate Amino Transferase 18 U/L (5-31); Blood Urea Nitrogen 15 mg/dL (9-16); Calcium 9.0 mg/dL (8.4-10.2); Carbon Dioxide 28 mmol/L (22-29); Chloride 107 mmol/L (96-108); Creatinine Clr Calc Pharmacy 61.3; Estimated Glomerular Filt Rate 53; Magnesium 1.9 mg/dL (1.6-2.6); Potassium 4.0 mmol/L (3.3-5.1); Sodium 139 mmol/L (135-145); Total Protein 7.2 g/dL (6.5-8.0)
[2025-03-01 17:18] LABS: Hematocrit 35.1 % (37.0-47.0); Hemoglobin 11.0 g/dl (12.0-16.0); Imm Gran Abs Auto 0.03 X10*3/uL (0.00-0.03); Imm Gran Pct Auto 0.4 % (0.0-0.4); Lymphocytes Absolute Auto 1.6 X10*3/uL (1.2-4.9); MANUAL DIFF FLAG SCAN; Mean Corpuscular HGB Conc 31.3 g/dl (31.0-35.0); Mean Corpuscular Hemoglobin 23.0 pg (27.0-33.0); Mean Corpuscular Volume 73.3 fL (80.0-98.0); NRBC Abs Auto 0.000 X10*3/uL (0.0-0.012); NRBC Pct Auto 0.0 /100WBC (0.0-0.2); PLT CLUMP 1; Red Blood Count 4.79 X10*6/uL (4.20-5.50); SCAN SMEAR FLAG 1
[2025-03-01 17:18] LABS: Appearance Urine Turbid; Glucose Urine UA Negative (Negative); PH >= 9.0 (5.0-9.0); Specific Gravity - Urine 1.020 (1.005-1.025)
[2025-03-01 17:58] LABS: Platelet Count 240 X10*3/uL (160-400); White Blood Count 8.3 X10*3/uL (4.8-10.8)
[2025-03-01 18:13] VITALS: BP 152/75; PULSE 68; RESP 16; O2SAT 100
[2025-03-01 18:14] VITALS: BP 152/75; PULSE 68; RESP 16; TEMP 36.6; O2SAT 100
--- OUTSIDE RECORDS SUMMARY | 2025-03-01 19:07 | XMS_ITS | Clinical Summary ---
Author Organization [address] Address [address] [place] [id number] Phone Support Name Relationship Address Phone Sandro Rao Spouse Unknown [phone] Gladys Mora Mother Unknown [phone] Lilliam Strauss Sister [address] [place] [address] Lilliam Strauss Sister [address] [place] [address] Care Team Providers Care Budget Analyst Name Role Phone Prateek Montanez MD Primary Care Provider [phone] Allergies Active Allergy Reactions Criticality Noted Date [...] TAKE 1 TABLET BY MOUTH EVERY DAY 30 tablet 5 Active Active Problems Problem Noted Date [...] relpax not effective 2007 IMO update Immunizations Immunization Administration Dates Next Due DTP 03/05/1992, 9,05/15/1987,02/26,1986 [id number] (Pentacel) 2mo to less than 5yo 05/19/1988 [...] Surgery Date Site/Laterality Comments APPENDECTOMY 1993 PROCEDURE: UT APPENDECTOMY Medical History Medical History Date Comments [...] 06/26/2016 Social Influencers of Health Screening 03/23/2022 Hypertension/CHF/CAD Annual BMP Blood Test 12/31/2023 12/30/2022 Depression Screening 04/20/2024 09/16/2023 COVID-19 Vaccine ( season) 2024 01/15/2021, 12/18/2020 Influenza Vaccine (#1) 2024 1, 12/31/2009, 02/19/2009 Cholesterol Screening (Lipid Panel) 12/31/2027 12/30/2022 DTaP,Tdap,and Td Vaccines (12 - Td or Tdap) 05/12/2028 05/12/2018, 05/12/2017, 05/12/2017, Additional history exists RSV Immunization Adult Patients (1 - 1-dose 75+ series) 2061 HIB Vaccines Completed 05/19/1988, 05/19/1988 IPV Vaccines [...] Health Maintenance Results * Depression Screening (09/16/2023) Pathologist [facility] Depression Screening Abstracted Historical Provider HEALTH MAINTENANCE Final Result * Annual BMP Blood Test (12/30/2022) [facility] Annual BMP Blood Test Abstracted [facility] Provider HEALTH MAINTENANCE Final Result * (ABNORMAL) Lipid panel (12/30/2022) [facility] LDL/HDL Ratio 4 0 - 4 Triglycerides 86 0 - 150 mg/dL Cholesterol 153 0 - 200 mg/dL HDL 39(A) >=40 mg/dL LDL Cholesterol 97 0 - 100 mg/dL Blood Venous blood specimen / Unknown Result [facility] Provider LAB BLOOD ORDERABLES Natty l Result * HIV Screening (11/11/2016) [facility] HIV Screening Abstracted Result [facility] Provider HEALTH MAINTENANCE Final Result * Cervical Cancer Screening: HPV (06/26/2016) [facility] Cervical Cancer Screening: HPV Negative, Abstracted [facility] Provider HEALTH MAINTENANCE Final Result * Hepatitis C Screening (04/11/2010) [facility] Hepatitis C Screening Abstracted [facility] Provider HEALTH MAINTENANCE Final Result from Last 3 Months or Most Recently Relevant to Health Maintenance Care Teams Budget Analyst Relationship Specialty Start Date End Date Prateek Montanez MD PCP - General Internal Medicine 02/08/19
--- OUTSIDE RECORDS SUMMARY | 2025-03-01 19:07 | XMS_ITS | Patient Health Record ---
Author Organization [facility] Address [address] [place] [address] Care Team Providers Care Change Lead Name Role Phone Prateek Montanez MD Primary Care Provider Baron Kramer Jr Unavailable [phone] Allergies Allergen (clinical drug ingredient) Drug/Non Drug [...] Onc e a day as needed for nausea; Duration: 30 day(s) 01/17/2022 Active Multivitamin & Mineral Active NexIUM 40 MG 1 capsule Orally Onc e a day; Duration: 30 days 07/19/2020 Active Pantoprazole Sodium 40 MG 1 tablet Orall y Once a day; Duration: 30 day(s) 08/15/2020 Active NexIUM 24HR 20 MG 1 capsule Orally Onc e a day; Duration: 30 day(s) 08/15/2020 Active Immunizations Vaccine Route [...] Problem Status W/U Status Risk Notes Problem Epigastric pain (52514796) Epigastric pain (R10.13) Active confirmed Plan Of Treatment No Information Insurance Providers Payer Name Payer Address Payer Phone Subscriber Number Group Number Insured Name Patient Relationship to Insured Coverage Start Date Coverage End Date [facility] [address] [address] [place], [place] [id number] DAYA FONTANEZ Self - patient is the insured Medical (General) History Medical History History ICD Code hx of preclampsia hx of gerd anxiety carpal tunnel migraines/tension headaches Denies DC,DM,CVA,Lung disease,renal dise ase PTSD PMDD ADHD Surgical History Surgery Date(Month/Year) cholecystectomy appendectomy
== END 2025-03-01 18:38 | disposition home or self-care (01) ==
PROVIDERS: Physician Assistant Medical; Emergency Provider Emergency Medicine; PCP Internal Medicine
DX: I10 Essential (primary) hypertension (principal); Z72.51 High risk heterosexual behavior
CPT/HCPCS: 36415; 80053; 81003; 83735; 84702; 85025; 99283; 99284